=== PATIENT | female | born 1940 | race Caucasian/White ===

== ENCOUNTER → 2019-03-11 | Outpatient (CLI) | payer OTHER ==
[~2019-03-11] MED LIST: ALBIPROI; ALBU90OI; ASPI325 PO; ETHNOR1/5; FLUSAL115 IH; FOLI1; HYDACE5 PO; LEVFLO500 PO; LEVO750 PO; LEVSOD50; LORPSEER24; LOVA20 PO; METTREX2.5; PRED10 PO; PRED5 PO; SUDOGEST; ZAFI20
[2019-03-11 16:16] LABS: BASOPHILS ABSOLUTE AUTO 0.12 K/mm3 (0.00-0.23); BASOPHILS PERCENT AUTO 2 % (0-2); EOSINOPHILS ABSOLUTE AUTO 0.51 K/mm3 (0.00-0.68); EOSINOPHILS PERCENT AUTO 7 % (0-6); Hematocrit 39.5 % (33.0-51.0); Hemoglobin 12.7 g/dL (11.5-16.0); IMMATURE GRAN ABSOLUTE AUTO 0.01 K/mm3 (0.00-0.10); IMMATURE GRAN PERCENT AUTO 0 % (0-1); LYMPHOCYTES ABSOLUTE AUTO 2.54 K/mm3 (0.84-5.20); LYMPHOCYTES PERCENT AUTO 37 % (21-46); MONOCYTES ABSOLUTE AUTO 0.64 K/mm3 (0.16-1.47); MONOCYTES PERCENT AUTO 9 % (4-13); Mean Corpuscular HGB 28.2 pg (26.0-34.0); Mean Corpuscular HGB Conc 32.2 g/dL (31.5-36.5); Mean Corpuscular Volume 88 fL (80-100); Mean Platelet Volume 9.4 fL (9.1-12.4); NEUTROPHILS ABSOLUTE AUTO 3.06 K/mm3 (1.96-9.15); NEUTROPHILS PERCENT AUTO 45 % (41-73); Platelet Count 353 K/mm3 (150-400); RDW Coefficient Variation 13.9 % (11.7-14.2); RDW Standard Deviation 44.5 fL (35.1-46.3); Red Blood Cell Count 4.51 M/mm3 (3.80-5.20); White Blood Cell Count 6.88 K/mm3 (4.00-11.30)
[2019-03-11 16:35] LABS: Alanine Aminotransfer (ALT/SGP 19 U/L (12-78); Albumin, Blood 3.6 g/dL (3.4-5.0); Albumin/Globulin Ratio 1.1 (0.8-1.8); Alk Phos 87 U/L (40-126); Anion Gap 13 mmol/L (6-16); Aspartate Aminotrans (AST/SGOT 15 U/L (12-37); Bilirubin, Total 0.3 mg/dL (0.1-1.0); Blood Urea Nitrogen 14 mg/dL (8-24); Bun/Creatinine Ratio 18.4 (12.0-20.0); CO2, Blood 24 mmol/L (21-32); Calcium, Blood 8.9 mg/dL (8.5-10.1); Chloride, Blood 102 mmol/L (98-108); Creatinine, Blood 0.76 mg/dL (0.40-1.00); Globulin, Blood 3.2 g/dL (2.2-4.0); Glomerular Filtration Rate >60 (60-); Glucose, Blood 92 mg/dL (70-99); Potassium, Blood 4.3 mmol/L (3.5-5.5); Sodium, Blood 139 mmol/L (136-145); Thyroid Stimulating Hormone 0.054 uIU/mL (0.360-4.800); Total Protein, Blood 6.8 g/dL (6.4-8.2)
== END | disposition home or self-care (01) ==
LOC: LAB SHORT 16:11 → LAB EV 16:11
PROVIDERS: Physician Assistant
DX: E55.9 Vitamin D deficiency, unspecified (principal); R10.9 Unspecified abdominal pain; R53.83 Other fatigue
CPT/HCPCS: 80053; 82306; 84443; 85025

== ENCOUNTER → 2019-08-31 | Outpatient (CLI) | payer OTHER | END | disposition home or self-care (01) | LOC: LAB EV 13:50 → LAB SHORT 13:50 | DX: R05 Cough (principal); Z20.828 Contact with and (suspected) exposure to other viral communicable diseases | CPT/HCPCS: U0003 ==

== ENCOUNTER → 2019-11-02 | Outpatient (CLI) | payer OTHER ==
[2019-11-02 13:17] LABS: BASOPHILS ABSOLUTE AUTO 0.09 K/mm3 (0.00-0.23); BASOPHILS PERCENT AUTO 1 % (0-2); EOSINOPHILS ABSOLUTE AUTO 0.36 K/mm3 (0.00-0.68); EOSINOPHILS PERCENT AUTO 4 % (0-6); Hematocrit 38.1 % (33.0-51.0); Hemoglobin 11.7 g/dL (11.5-16.0); IMMATURE GRAN ABSOLUTE AUTO 0.04 K/mm3 (0.00-0.10); IMMATURE GRAN PERCENT AUTO 1 % (0-1); LYMPHOCYTES ABSOLUTE AUTO 2.08 K/mm3 (0.84-5.20); LYMPHOCYTES PERCENT AUTO 25 % (21-46); MONOCYTES ABSOLUTE AUTO 0.57 K/mm3 (0.16-1.47); MONOCYTES PERCENT AUTO 7 % (4-13); Mean Corpuscular HGB 25.4 pg (26.0-34.0); Mean Corpuscular HGB Conc 30.7 g/dL (31.5-36.5); Mean Corpuscular Volume 83 fL (80-100); Mean Platelet Volume 9.5 fL (9.1-12.4); NEUTROPHILS ABSOLUTE AUTO 5.11 K/mm3 (1.96-9.15); NEUTROPHILS PERCENT AUTO 62 % (41-73); Platelet Count 434 K/mm3 (150-400); RDW Coefficient Variation 18.4 % (11.7-14.2); White Blood Cell Count 8.25 K/mm3 (4.00-11.30)
== END | disposition home or self-care (01) ==
LOC: LAB SHORT 13:12 → LAB EV 13:12
PROVIDERS: Family Medicine
DX: R53.83 Other fatigue (principal)
CPT/HCPCS: 84443; 85025

== ENCOUNTER 2021-01-09 19:21 | Inpatient (IN) | payer MEDICARE ==
[~2021-01-09] VITALS: Ht 154.9 cm; Wt 67.1 kg
[2021-01-09 20:19] LABS: BASOPHILS ABSOLUTE AUTO 0.09 K/mm3 (0.00-0.23); BASOPHILS PERCENT AUTO 1 % (0-2); EOSINOPHILS ABSOLUTE AUTO 0.03 K/mm3 (0.00-0.68); EOSINOPHILS PERCENT AUTO 0 % (0-6); Hematocrit 35.4 % (33.0-51.0); Hemoglobin 10.8 g/dL (11.5-16.0); IMMATURE GRAN ABSOLUTE AUTO 0.06 K/mm3 (0.00-0.10); IMMATURE GRAN PERCENT AUTO 0 % (0-1); LYMPHOCYTES ABSOLUTE AUTO 1.95 K/mm3 (0.84-5.20); LYMPHOCYTES PERCENT AUTO 12 % (21-46); MONOCYTES ABSOLUTE AUTO 1.39 K/mm3 (0.16-1.47); MONOCYTES PERCENT AUTO 9 % (4-13); Mean Corpuscular HGB 23.2 pg (26.0-34.0); Mean Corpuscular HGB Conc 30.5 g/dL (31.5-36.5); Mean Corpuscular Volume 76 fL (80-100); Mean Platelet Volume 10.3 fL (9.1-12.4); NEUTROPHILS PERCENT AUTO 79 % (41-73); Platelet Count 414 K/mm3 (150-400); RDW Coefficient Variation 18.7 % (11.7-14.2); RDW Standard Deviation 51.1 fL (35.1-46.3); Red Blood Cell Count 4.66 M/mm3 (3.80-5.20); White Blood Cell Count 16.42 K/mm3 (4.00-11.30)
[2021-01-09 20:41] LABS: Alanine Aminotransfer (ALT/SGP 32 U/L (12-78); Albumin, Blood 2.6 g/dL (3.4-5.0); Albumin/Globulin Ratio 0.6 (0.8-1.8); Alk Phos 176 U/L (50-136); Anion Gap 9 mmol/L (6-16); Aspartate Aminotrans (AST/SGOT 18 U/L (12-37); Bilirubin, Total 1.1 mg/dL (0.1-1.0); Blood Urea Nitrogen 13 mg/dL (8-24); Bun/Creatinine Ratio 17.1 (12.0-20.0); CO2, Blood 23 mmol/L (21-32); Calcium, Blood 8.5 mg/dL (8.5-10.1); Chloride, Blood 101 mmol/L (98-108); Creatinine, Blood 0.76 mg/dL (0.40-1.00); Globulin, Blood 4.7 g/dL (2.2-4.0); Glomerular Filtration Rate >60 (60-); Glucose, Blood 100 mg/dL (70-99); Potassium, Blood 3.7 mmol/L (3.5-5.5); Sodium, Blood 133 mmol/L (136-145); Total Protein, Blood 7.3 g/dL (6.4-8.2); Troponin I <0.015 ng/mL (0.000-0.040)
[2021-01-09 20:49] LABS: SARS-Cov-2 (COVID-19) PCR, MMC NEGATIVE (NEGATIVE)
[2021-01-09] MEDS ORDERED: IPRAT-ALBUT 0.5-3 ML INH (21:18)
[2021-01-09] MEDS ORDERED: MONT10T PO (21:18)
[2021-01-09] MEDS ORDERED: TIOT18 INH (21:19)
[2021-01-09] MEDS ORDERED: METOPROLOL TART25 MG PO (21:19)
[2021-01-09] MEDS ORDERED: METFORMIN HCL500 M2 PO (21:19)
[2021-01-09] MEDS ORDERED: PANTOPRAZOLE SO40 M2 PO (21:19)
[2021-01-09] MEDS ORDERED: EUTHYROX88 MC1 PO (21:20)
[2021-01-09] MEDS ORDERED: ALEN10 PO (21:20)
[2021-01-09 22:08] LABS: Influenza A, PCR NEGATIVE (NEGATIVE); Influenza B, PCR NEGATIVE (NEGATIVE); Resp Syncytial Virus, PCR NEGATIVE (NEGATIVE)
[2021-01-10 00:02] LABS: Source, Urine Clean Catch
[2021-01-10 00:08] LABS: Bilirubin, Urine Neg (Neg); Blood, Urine 2+ (Neg); Glucose Qualitative, Urine Neg (Neg); Ketones, Urine 4+ (Neg); Leukocyte Esterase, Urine 3+ (Neg); Nitrite, Urine Neg (Neg); Protein, Urine 2+ (Neg); Specific Gravity, Urine 1.015 (1.003-1.022); Urobilinogen, Urine 2+ (Normal)
[2021-01-10 00:14] LABS: Appearance, Urine Clear (Clear); Bacteria Few /hpf; Color, Urine Yellow (P-Yellow); Red Blood Cells, Urine 0-2 /hpf (0-2); Squamous Epithelial Cells Few /hpf (Few)
[2021-01-10 07:02] LABS: BASOPHILS ABSOLUTE AUTO 0.05 K/mm3 (0.00-0.23); BASOPHILS PERCENT AUTO 0 % (0-2); EOSINOPHILS ABSOLUTE AUTO 0.06 K/mm3 (0.00-0.68); EOSINOPHILS PERCENT AUTO 0 % (0-6); Hematocrit 27.6 % (33.0-51.0); Hemoglobin 8.4 g/dL (11.5-16.0); IMMATURE GRAN ABSOLUTE AUTO 0.06 K/mm3 (0.00-0.10); IMMATURE GRAN PERCENT AUTO 0 % (0-1); LYMPHOCYTES ABSOLUTE AUTO 1.52 K/mm3 (0.84-5.20); LYMPHOCYTES PERCENT AUTO 11 % (21-46); MONOCYTES ABSOLUTE AUTO 1.57 K/mm3 (0.16-1.47); MONOCYTES PERCENT AUTO 12 % (4-13); Mean Corpuscular HGB 23.3 pg (26.0-34.0); Mean Corpuscular HGB Conc 30.4 g/dL (31.5-36.5); Mean Corpuscular Volume 77 fL (80-100); Mean Platelet Volume 10.5 fL (9.1-12.4); NEUTROPHILS ABSOLUTE AUTO 10.44 K/mm3 (1.96-9.15); NEUTROPHILS PERCENT AUTO 76 % (41-73); Platelet Count 323 K/mm3 (150-400); RDW Coefficient Variation 18.5 % (11.7-14.2); RDW Standard Deviation 51.3 fL (35.1-46.3)
[2021-01-10 07:13] LABS: Alanine Aminotransfer (ALT/SGP 28 U/L (12-78); Albumin, Blood 1.8 g/dL (3.4-5.0); Albumin/Globulin Ratio 0.5 (0.8-1.8); Alk Phos 136 U/L (50-136); Anion Gap 8 mmol/L (6-16); Aspartate Aminotrans (AST/SGOT 21 U/L (12-37); Bilirubin, Total 0.6 mg/dL (0.1-1.0); Blood Urea Nitrogen 12 mg/dL (8-24); Bun/Creatinine Ratio 18.6 (12.0-20.0); CO2, Blood 21 mmol/L (21-32); Calcium, Blood 7.1 mg/dL (8.5-10.1); Chloride, Blood 109 mmol/L (98-108); Creatinine, Blood 0.65 mg/dL (0.40-1.00); Globulin, Blood 3.7 g/dL (2.2-4.0); Glomerular Filtration Rate >60 (60-); Glucose, Blood 138 mg/dL (70-99); Potassium, Blood 3.1 mmol/L (3.5-5.5); Sodium, Blood 138 mmol/L (136-145); Total Protein, Blood 5.5 g/dL (6.4-8.2)
--- NOTE | 2021-01-10 08:00 | NUR ---
PT ARRIVED FROM ER. PT ALERT AND ORIENTED, ABLE TO STAND AND TRANSFER TO ICU BED WITHOUT ASSISTANCE. PT ON 2L 02 VIA NASAL CANNULA, 02 SATS >90%. PT HAS IV ACCESS IN R/FOREARM AND L/AC. LEVOPHED STARTED AT 2 MCG/MIN FOR SYSTOLIC BP BELOW 90. NO OTHER ACUTE NEEDS NOTED, WILL CONTINUE TO MONITOR.
--- NOTE | 2021-01-10 18:25 | NUR ---
Shift summary. Pt continues in bed, on 2L/min 02 via NC. Pt is alert and oriented, able to get up to bedside commode and chair. Pt has powerglide in DARWIN, put in this shift. IV access in L/AC. IV pump settings: Levophed 2 mcg/min, Potassium chloride 75 ml/hr. Pt blood pressure labile during shift, Levophed titrated off and on several times over the course of the shift. See shift assessment for further details, will continue to monitor and report off to nightshift RN.
--- NOTE | 2021-01-10 19:00 | NUR ---
ASSUME CARE: PT A&O X4, SITTING AT SIDE OF THE BED WATCHING TV. SHE DENIES PAIN AND IS AFEBRILE. LEVO INFUSING AT 2MCG/MIN AND NS + KCL AT 75ML/HR. ON 2L NC SHE IS SATING >95%. HR IN 90'S AND BP IS 110/70. SHE IS REQUESTING TO EAT HER DINNER BUT HAS NO OTHER CONCERNS OR COMPLAINTS AT THIS TIME. SEE SHIFT ASSESSMENT FOR DETAILS.
[2021-01-11 03:36] LABS: BASOPHILS ABSOLUTE AUTO 0.01 K/mm3 (0.00-0.23); BASOPHILS PERCENT AUTO 0 % (0-2); EOSINOPHILS PERCENT AUTO 0 % (0-6); Hematocrit 29.1 % (33.0-51.0); Mean Corpuscular HGB 23.1 pg (26.0-34.0); Mean Corpuscular HGB Conc 30.9 g/dL (31.5-36.5); Mean Corpuscular Volume 75 fL (80-100); Mean Platelet Volume 10.2 fL (9.1-12.4); Platelet Count 385 K/mm3 (150-400); RDW Coefficient Variation 18.9 % (11.7-14.2); RDW Standard Deviation 50.7 fL (35.1-46.3)
[2021-01-11 03:37] LABS: IMMATURE GRAN ABSOLUTE AUTO 0.11 K/mm3 (0.00-0.10); IMMATURE GRAN PERCENT AUTO 1 % (0-1); LYMPHOCYTES ABSOLUTE AUTO 0.95 K/mm3 (0.84-5.20); LYMPHOCYTES PERCENT AUTO 10 % (21-46); MONOCYTES ABSOLUTE AUTO 0.15 K/mm3 (0.16-1.47); MONOCYTES PERCENT AUTO 2 % (4-13); NEUTROPHILS ABSOLUTE AUTO 8.48 K/mm3 (1.96-9.15); NEUTROPHILS PERCENT AUTO 88 % (41-73)
[2021-01-11 03:56] LABS: Anion Gap 6 mmol/L (6-16); Blood Urea Nitrogen 7 mg/dL (8-24); Bun/Creatinine Ratio 11.7 (12.0-20.0); CO2, Blood 24 mmol/L (21-32); Chloride, Blood 108 mmol/L (98-108); Glomerular Filtration Rate >60 (60-); Glucose, Blood 227 mg/dL (70-99); Phosphorus, Blood 1.1 mg/dL (2.5-4.9); Potassium, Blood 3.9 mmol/L (3.5-5.5); Sodium, Blood 138 mmol/L (136-145)
--- NOTE | 2021-01-11 06:09 | NUR ---
SHIFT SUMMARY: PT LYING IN BED W/ EYES CLOSED ON 2L NC CURRENTLY SATING 97%. SHE IS EASILY AROUSABLE AND A&0 x4. HR IS 78 AND BP IS 116/69. LEVO HAS BEEN ON STAND BY SINCE AROUND 0400 AND NS + KCL IS STILL INFUSING AT 75ML/HR. PT IS ABLE TO STAND UP TO USE THE BEDSIDE COMMODE AND HER URINE IS MORE LIGHT YELLOW AND CLEAR THIS MORNING. SHE HAS REMAINED AFEBRILE AND DENIES PAIN. WILL REPORT TO ONCOMING RN WHEN AVAILABLE.
--- NOTE | 2021-01-11 08:05 | NUR ---
Assumed care. Report received from nightshift RN. Pt resting in bed, on 2L 02 via NC. Powerglide in place, IV pump settings: KCl running at 75 ml/hr. Levophed on SB. Pt alert and oriented, able to communicate needs and get up to bedside commode. No acute needs at this time, will continue to monitor.
--- NOTE | 2021-01-11 16:10 | NUR ---
Patient transferred. Pt moved to PCU room 10. Report given to Atif BRUNO. No acute needs noted at time of transfer.
--- NOTE | 2021-01-11 17:49 | NUR ---
SHIFT SUMMARY PT A/O X4 AND COOPERATIVE OF CARE. PT ARRIVED TO UNIT VIA WHEELCHAIR AND ON 1.5L NC AT 1642 OCCOMPANIED BY RN. NO REPORTS OF CHEST PAIN/PRESSURE SINCE ARRIVAL TO UNIT. NO REPORTS OF SOB SINCE ARRIVAL TO UNIT, AUDIBLE WHEEZES HEARD, PT RECIEVES BREATHING TREATMENTS.
--- NOTE | 2021-01-11 21:31 | NUR ---
ASSUMED CARE OF PATIENT AT APPROXIMATELY 1905 FROM REJI Wong RN. PATIENT ALERT AND ORIENTED X4; SBA OUT OF BED; REPORTS TURNS SELF. PATIENT REPORTS FRUSTRATION WITH BREATHING TREATMENT FREQUENCY DURING BEDSIDE REPORT. PATIENT DENIES PAIN, NUMBNESS, TINGLING, DIZZINESS AND NAUSEA. NSR ON TELE; OXYGEN SATURATION ABOVE 90% ON 1 LPM VIA NC. PG S/L. BP SOFT BUT PATIENT REPORTS CHORNIC LOW BP.
[2021-01-12 04:29] LABS: BASOPHILS ABSOLUTE AUTO 0.01 K/mm3 (0.00-0.23); BASOPHILS PERCENT AUTO 0 % (0-2); EOSINOPHILS PERCENT AUTO 0 % (0-6); Hematocrit 29.2 % (33.0-51.0); Hemoglobin 8.9 g/dL (11.5-16.0); Mean Corpuscular HGB 22.9 pg (26.0-34.0); Mean Corpuscular HGB Conc 30.5 g/dL (31.5-36.5); Mean Corpuscular Volume 75 fL (80-100); Mean Platelet Volume 10.6 fL (9.1-12.4); NRBC ABSOLUTE 0.03 K/mm3 (0.00-0.02); NRBC Auto 0.3 /100 WBC (0.0-0.2); Platelet Count 464 K/mm3 (150-400); RDW Coefficient Variation 18.9 % (11.7-14.2); RDW Standard Deviation 51.8 fL (35.1-46.3); Red Blood Cell Count 3.88 M/mm3 (3.80-5.20); White Blood Cell Count 11.11 K/mm3 (4.00-11.30)
[2021-01-12 04:45] LABS: Albumin, Blood 2.1 g/dL (3.4-5.0); Anion Gap 8 mmol/L (6-16); Blood Urea Nitrogen 11 mg/dL (8-24); Bun/Creatinine Ratio 17.4 (12.0-20.0); CO2, Blood 23 mmol/L (21-32); Calcium, Blood 8.6 mg/dL (8.5-10.1); Chloride, Blood 110 mmol/L (98-108); Creatinine, Blood 0.63 mg/dL (0.40-1.00); Glomerular Filtration Rate >60 (60-); Glucose, Blood 189 mg/dL (70-99); Phosphorus, Blood 2.3 mg/dL (2.5-4.9); Potassium, Blood 3.8 mmol/L (3.5-5.5); Sodium, Blood 141 mmol/L (136-145)
[2021-01-12 04:51] LABS: IMMATURE GRAN ABSOLUTE AUTO 0.24 K/mm3 (0.00-0.10); IMMATURE GRAN PERCENT AUTO 2 % (0-1); LYMPHOCYTES ABSOLUTE AUTO 1.75 K/mm3 (0.84-5.20); LYMPHOCYTES PERCENT AUTO 16 % (21-46); MONOCYTES ABSOLUTE AUTO 0.34 K/mm3 (0.16-1.47); MONOCYTES PERCENT AUTO 3 % (4-13); NEUTROPHILS ABSOLUTE AUTO 8.77 K/mm3 (1.96-9.15); NEUTROPHILS PERCENT AUTO 79 % (41-73)
[2021-01-12 06:00] LABS: BAND PERCENT MAN 1 % (0-8); BASOPHILS PERCENT MAN 0 % (0-2); EOSINOPHILS PERCENT MAN 0 % (0-6); LYMPHOCYTES ABSOLUTE MAN 1.66 K/mm3 (0.84-5.20); LYMPHOCYTES PERCENT MAN 15 % (21-46); METAMYELOCYTE ABSOLUTE MAN 0.11 K/mm3 (0.00-0.00); METAMYELOCYTE PERCENT MAN 1 % (0-0); MONOCYTES ABSOLUTE MAN 0.33 K/mm3 (0.16-1.47); MONOCYTES PERCENT MAN 3 % (4-13); NEUTROPHILS ABSOLUTE MAN 8.88 K/mm3 (1.96-9.15); PLASMA CELL ABSOLUTE MAN 0.11 K/mm3 (0.00-0.00); PLASMA CELLS PERCENT MAN 1 % (0-0); SEG NEUTROPHILS PERCENT MAN 79 % (41-73); TOTAL CELLS COUNTED 100
--- NOTE | 2021-01-12 06:45 | NUR ---
PATIENT SLEPT ABOUT NINE HOURS LAST NIGHT. NO ACUTE CHANGES.
--- NOTE | 2021-01-12 10:41 | NUR ---
ALERT AND ORIENTED X4. PERRLA. DENIES NUMBNESS/TINGLING. ABLE TO MOVE ALL EXTREMITIES, OVERALL WEAK. UP TO BATHROOM WITH 1 PERSON ASSIST. ON 1-2L O2 WHEN UP MOVING AROUND. LUNGS SOUNDING DIM WITH EXPIRATORY WHEEZE. BREATHING TREATMENTS PRN. TELE SHOWING SINUS THIS AM WITH HR 80-90'S. TELE DISCONTINUED. DENIES CHEST PAIN/PRESSURE. VITAL SIGNS STABLE. BP ON SOFTER SIDE. METOPROLOL HELD THIS AM DUE TO PARAMETERS/SOFT BP. UP TO BATHROOM WITH 1 PERSON ASSIST. DENIES ABDOMINAL PAIN/NAUSEA. COMPLAINS OF NECK PAIN. RELEIVED WITH REPOSITIONING. DR. PARADA IN THIS AM TO DISCUSS PATIENT STATUS. CODE STATUS REVIEWED AND PATIENT STATED DNI. SHE WOULD LIKE EVERYTHING BUT INTUBATION. SKIN OVERALL FRAGILE. SCATTERED BRUISING AND SCABS. MEDICAL STATUS AT THIS TIME. WILL CONTINUE TO MONITOR. CALL LIGHT IN REACH.
--- NOTE | 2021-01-12 11:10 | NUR ---
TRANSFER TO MEDICAL: REPORTED OFF TO MEDICAL FLOOR RN. PATIENT WILL BE LEAVING UNIT VIA WHEELCHAIR WITH ALL PERSONAL BELONGINGS. NO ACUTE CHANGES. SLEEPING ON AND OFF THIS AM.
--- NOTE | 2021-01-12 16:36 | NUR ---
SHIFT SUMMARY PATIENT IS ALERT AND ORIENTED, PLEASANT AND COOPERATIVE WITH CARE. PATIENT HAS SOME EXPIRATORY WHEEZING. PATIENT HAS HAD 2 BREATHING TREATMENTS THIS SHIFT. PATIENT DENIES ANY DISTRESS. PATIENT USES 2 LPM OF 02 VIA NASAL CANNULA WHILE WALKING. RA AT REST. PATIENT WILL GET ANTIBIOTIC THERAPY THIS EVENING. PATIENT'S SPOUSE IS AT BEDISIDE. CALL LIGHT WITHIN REACH. VITAL SIGNS STABLE. NO ACUTE CHANGES THIS SHIFT. THIS NURSE WILL CONTINUE TO CARE FOR THE PATIENT UNTIL SHIFT REPORT IS MADE TO ONCOMING NURSE.
[2021-01-12] MEDS ORDERED: NYSTATIN15 GM TOP (22:55)
--- NOTE | 2021-01-13 04:26 | NUR ---
SHIFT SUMMARY PT ALERT AND ORIENTED. STILL HAS EXPIRATORY WHEEZING. CALL RESPIRATORY THERAPIST FOR SHORTNESS OF BREATH. PT STILL COMPLAINING ABOUT PILLOWS . IV ABT GIVEN. NO S/S OF ADVERSE REACTION. KEEP MONITORING.
[2021-01-13 05:35] LABS: Hematocrit 27.4 % (33.0-51.0); Hemoglobin 8.6 g/dL (11.5-16.0); Mean Corpuscular HGB 23.4 pg (26.0-34.0); Mean Corpuscular HGB Conc 31.4 g/dL (31.5-36.5); Mean Corpuscular Volume 75 fL (80-100); Mean Platelet Volume 10.1 fL (9.1-12.4); NRBC ABSOLUTE 0.03 K/mm3 (0.00-0.02); NRBC Auto 0.2 /100 WBC (0.0-0.2); Platelet Count 489 K/mm3 (150-400); RDW Standard Deviation 51.6 fL (35.1-46.3); Red Blood Cell Count 3.68 M/mm3 (3.80-5.20); White Blood Cell Count 12.25 K/mm3 (4.00-11.30)
[2021-01-13 05:58] LABS: Albumin, Blood 2.1 g/dL (3.4-5.0); Anion Gap 8 mmol/L (6-16); Blood Urea Nitrogen 14 mg/dL (8-24); Bun/Creatinine Ratio 23.3 (12.0-20.0); CO2, Blood 23 mmol/L (21-32); Calcium, Blood 8.3 mg/dL (8.5-10.1); Chloride, Blood 110 mmol/L (98-108); Glomerular Filtration Rate >60 (60-); Glucose, Blood 152 mg/dL (70-99); Phosphorus, Blood 2.8 mg/dL (2.5-4.9); Potassium, Blood 3.9 mmol/L (3.5-5.5); Sodium, Blood 141 mmol/L (136-145)
[2021-01-13 06:20] LABS: BAND PERCENT MAN 4 % (0-8); BASOPHILS PERCENT MAN 0 % (0-2); EOSINOPHILS PERCENT MAN 0 % (0-6); LYMPHOCYTES ABSOLUTE MAN 1.47 K/mm3 (0.84-5.20); LYMPHOCYTES PERCENT MAN 12 % (21-46); MONOCYTES ABSOLUTE MAN 0.73 K/mm3 (0.16-1.47); MONOCYTES PERCENT MAN 6 % (4-13); MYELOCYTE ABSOLUTE MAN 0.12 K/mm3 (0.00-0.00); MYELOCYTE PERCENT MAN 1 % (0-0); NEUTROPHILS ABSOLUTE MAN 9.92 K/mm3 (1.96-9.15); SEG NEUTROPHILS PERCENT MAN 77 % (41-73); TOTAL CELLS COUNTED 100
[2021-01-13 11:43] LABS: Percent Saturation 6.8 % (15.0-50.0)
--- NOTE | 2021-01-13 14:59 | NUR ---
SHIFT SUMMARY PT AWAKE, RESTING QUIETLY WATCHING TV AT START OF SHIFT. PT UP INDEPENDENTLY TO BTHRM TO VOID. DR HASTINGS IN TO SEE PT THIS AM. MEDS ADJUSTED FOR PROBABLE D/C TO HOME TOMORROW. HX OF CHRONIC ANEMIA; STOOL GUIAC ORDERED. HAT PLACED IN TOILET AND PT INFORMED, BUT REPORTED THAT SHE DIDN'T NEED TO HAVE BM. LUNGS T/O WITH ONLY FINE CRACKLES SCATTERED IN BASES. PT LATER C/O TREJO; MEDICATED WITH TYLENOL PER EMAR. DENIED FURTHER NEEDS TO PRESENT. CALL LT IN REACH.
--- NOTE | 2021-01-13 16:47 | NUR ---
Initial Assessment with [facility] [employer] 1. Who did you speak with? Spoke with patient 2. What is the patient's prior level of functions? Independent 3. What is the patient's current living situation? Patient lives with her . Patient has a safe and stable home with running water, heat electricity, and sewage. No barriers at this time. 4. Is the patient and/or family able to provide transportation to and from doctor's appointments and pear picker prescriptions? Yes 5. Does patient still drive? Yes 6. POA/PCP/NOK: PCP-pt requests new PCP 7. Discharge goals: -Patient is returning to her residence -DME: no -Medication Management Self-management -Preferred Pharmacy: [facility] -Housekeeping need: No -Able to cook for self: yes 8. List barriers to discharge -SNF Placement: No -Memory Care: No -Transportation needs: No -Financial concerns: No -Drug/Alcohol treatment: No -Home Health: No -Hospice: No 9. Discharge Plan: Return to her residence 10. PCP Follow up appointment: Will be scheduled within seven calendar days of discharge.
--- NOTE | 2021-01-14 03:53 | NUR ---
SHIFT SUMMARY ADMITTED FOR PNEUMONIA/SEPSIS. DNI CODE (CPR/SHOCKS ARE OK). PLAN IS FOR DC HOME TODAY. POWERGLIDE IS IN PLACE - DARWIN. REGULAR DIET. ACHS CHEMSTICKS, LOW SS. SHE IS A&O X4, INDEPENDENT IN ROOM. ANTIB RX ARE PO. SHE IS ON RA @ HOME, HERE SHE HAS BEEN ON 2 LPM.
[2021-01-14 05:05] LABS: BASOPHILS ABSOLUTE AUTO 0.05 K/mm3 (0.00-0.23); BASOPHILS PERCENT AUTO 0 % (0-2); EOSINOPHILS ABSOLUTE AUTO 0.01 K/mm3 (0.00-0.68); EOSINOPHILS PERCENT AUTO 0 % (0-6); Hematocrit 29.1 % (33.0-51.0); Hemoglobin 9.2 g/dL (11.5-16.0); IMMATURE GRAN ABSOLUTE AUTO 0.56 K/mm3 (0.00-0.10); IMMATURE GRAN PERCENT AUTO 4 % (0-1); LYMPHOCYTES ABSOLUTE AUTO 4.33 K/mm3 (0.84-5.20); LYMPHOCYTES PERCENT AUTO 34 % (21-46); MONOCYTES ABSOLUTE AUTO 1.43 K/mm3 (0.16-1.47); MONOCYTES PERCENT AUTO 11 % (4-13); Mean Corpuscular HGB 23.2 pg (26.0-34.0); Mean Corpuscular HGB Conc 31.6 g/dL (31.5-36.5); Mean Corpuscular Volume 73 fL (80-100); NEUTROPHILS ABSOLUTE AUTO 6.47 K/mm3 (1.96-9.15); NEUTROPHILS PERCENT AUTO 50 % (41-73); NRBC ABSOLUTE 0.11 K/mm3 (0.00-0.02); NRBC Auto 0.9 /100 WBC (0.0-0.2); Platelet Count 540 K/mm3 (150-400); RDW Standard Deviation 49.2 fL (35.1-46.3); Red Blood Cell Count 3.97 M/mm3 (3.80-5.20); White Blood Cell Count 12.85 K/mm3 (4.00-11.30)
[2021-01-14 06:05] LABS: Albumin, Blood 2.3 g/dL (3.4-5.0); Anion Gap 9 mmol/L (6-16); Blood Urea Nitrogen 16 mg/dL (8-24); Bun/Creatinine Ratio 22.1 (12.0-20.0); CO2, Blood 29 mmol/L (21-32); Calcium, Blood 8.7 mg/dL (8.5-10.1); Chloride, Blood 104 mmol/L (98-108); Creatinine, Blood 0.73 mg/dL (0.40-1.00); Glomerular Filtration Rate >60 (60-); Glucose, Blood 94 mg/dL (70-99); Phosphorus, Blood 3.3 mg/dL (2.5-4.9); Potassium, Blood 3.6 mmol/L (3.5-5.5); Sodium, Blood 142 mmol/L (136-145)
--- NOTE | 2021-01-14 14:51 | NUR ---
SHIFT SUMMARY PT RESTING QUIETLY AT START OF SHIFT. WAKES EASILY FOR CARE, BUT IRRITABLE. PT HAS BEEN INDEPENDENT TO BTHRM AND AROUND RM. REPORTS THAT SHE DOESN'T FEEL WELL TODAY YESTERDAY. LUNGS T/O WITH INSP/EXP WHEEZES TODAY. PT C/O NECK PAIN, BUT DECLINES PAIN MEDICATION. DR HASTINGS IN TO SEE PT. HOME O2 EVAL DONE FOR POSSIBLE D/C. PT DID WELL AMBULATING IN HALLS, BUT JUST DIDN'T FEEL WELL ENOUGH TO GO HOME. PT TO STAY ANOTHER DAY AND XRAYS ORDERED OF PT'S NECK. STOOL, SPUTUM AND URINE CX'S ALSO ORDERED. URINE OBTAINED AND SENT. PT CONTINUES TO REPORT NO BM FOR SEVERAL DAYS, BUT REFUSING MOST BOWEL CARE. PT DID AGREE TO PRUNE JUICE. PT/OT ALSO ATTEMPTED TO WORK WITH PT TODAY. PT ONLY ALLOWING VERY LIMITED PARTICIPATION. VERY IRRITABLE WITH SOME STAFF. RESTING QUIETLY AGAIN AT THIS TIME. DENIES FURTHER NEEDS. CALL LT IN REACH.
--- NOTE | 2021-01-15 03:54 | NUR ---
SHIFT SUMMARY ADMITTED FOR SEVERE SEPSIS/PNEUMONIA. DNI CODE (CPR/SHOCKS OK). PLAN IS FOR DC HOME. POWERGLIDE IN DARWIN. REGULAR DIET. RA. INDEPENDENT - BRP. A&O X4. ACHS CHEMSTICKS, LOW SS. NO NEW CONCERNS THIS SHIFT
[2021-01-15 05:32] LABS: BASOPHILS ABSOLUTE AUTO 0.02 K/mm3 (0.00-0.23); BASOPHILS PERCENT AUTO 0 % (0-2); EOSINOPHILS ABSOLUTE AUTO 0.02 K/mm3 (0.00-0.68); EOSINOPHILS PERCENT AUTO 0 % (0-6); Hematocrit 29.5 % (33.0-51.0); Hemoglobin 9.1 g/dL (11.5-16.0); IMMATURE GRAN ABSOLUTE AUTO 0.47 K/mm3 (0.00-0.10); IMMATURE GRAN PERCENT AUTO 4 % (0-1); LYMPHOCYTES ABSOLUTE AUTO 4.09 K/mm3 (0.84-5.20); LYMPHOCYTES PERCENT AUTO 34 % (21-46); MONOCYTES ABSOLUTE AUTO 1.13 K/mm3 (0.16-1.47); MONOCYTES PERCENT AUTO 9 % (4-13); Mean Corpuscular HGB 22.8 pg (26.0-34.0); Mean Corpuscular HGB Conc 30.8 g/dL (31.5-36.5); Mean Corpuscular Volume 74 fL (80-100); Mean Platelet Volume 9.9 fL (9.1-12.4); NEUTROPHILS ABSOLUTE AUTO 6.49 K/mm3 (1.96-9.15); NEUTROPHILS PERCENT AUTO 53 % (41-73); NRBC ABSOLUTE 0.12 K/mm3 (0.00-0.02); Platelet Count 538 K/mm3 (150-400); RDW Coefficient Variation 18.9 % (11.7-14.2); RDW Standard Deviation 49.7 fL (35.1-46.3); Red Blood Cell Count 3.99 M/mm3 (3.80-5.20); White Blood Cell Count 12.22 K/mm3 (4.00-11.30)
[2021-01-15 06:12] LABS: Anion Gap 9 mmol/L (6-16); Blood Urea Nitrogen 17 mg/dL (8-24); Bun/Creatinine Ratio 24.7 (12.0-20.0); CO2, Blood 29 mmol/L (21-32); Calcium, Blood 8.1 mg/dL (8.5-10.1); Chloride, Blood 103 mmol/L (98-108); Creatinine, Blood 0.69 mg/dL (0.40-1.00); Glomerular Filtration Rate >60 (60-); Glucose, Blood 107 mg/dL (70-99); Potassium, Blood 3.6 mmol/L (3.5-5.5); Sodium, Blood 141 mmol/L (136-145)
[2021-01-15 10:39] LABS: Stool Occult Blood Guaiac 1 Neg (Neg)
[2021-01-15] MEDS ORDERED: ATOR40TA PO (12:25)
[2021-01-15] MEDS ORDERED: Prednisone10 MG PO (12:30)
[2021-01-15] MEDS ORDERED: BREO ELLIPTA 21 EAC1 INH (12:31)
--- NOTE | 2021-01-15 19:19 | NUR ---
DISCHARGE SUMMARY: PATIENT DENIED SHORTNESS OF BREATH THROUGHOUT THE SHIFT. PATIENT REQUESTED A BREATHING TREATMENT ONE TIME, BUT REPORTED THAT HER BREATHING FEELS THAT IT IS AT BASELINE. PATIENT CONTINUES TO HAVE SOME NECK PAIN THAT SHE THINKS WILL RESOLVE ONCE SHE GETS HOME. PATIENT UP INDEPENDENTLY IN THE ROOM. PATIENT STEADY ON HER FEET. DISCHARGE MEDICATIONS FAXED PER PATIENT REQUEST. DISCHARGE EDUCATION AND INSTRUCTIONS PROVIDED. ALL QUESTIONS AND CONCERNS ADDRESSED. PATIENT DISCHARGED IN WHEELCHAIR WITH HAIR BALER. PATIENT STABLE AT TIME OF DISCHARGE.
--- NOTE | 2021-01-20 08:54 | NUR ---
Per Dr. Welch discharge appropriate on 01/15/21. Patient was aware of discharge and did not oppose. Patient was discharged to her residence. Discharged medications faxed per patient request. Discharge education and instructions provided. All questions and concerns addressed. Patient discharged in wheelchair with FIELD IDENTIFICATION SPECIALIST. Patient stable at time of discharge with no barriers to discharge. Follow up appointment with PCP scheduled. Patient to contact PCP prior to appt if she has any questions or concerns.
== END 2021-01-15 15:13 | disposition home or self-care (01) | DRG 871 ==
LOC: ER 19:21 → ERHOLD 22:21 → ICUE 22:21 → PCU 01-11 15:44 → MEDS 01-12 11:24
PROVIDERS: Emergency Medicine; Family Medicine; Internal Medicine Endocrinology, Diabetes & Metabolism; Physician Assistant; Student in an Organized Health Care Education/Training Program; ADMIT Internal Medicine
PROC: 3E02340 Introduction of Influenza Vaccine into Muscle, Percutaneous Approach (ICD-10-PCS; 2021-01-09)
PROC: 3E033XZ Introduction of Vasopressor into Peripheral Vein, Percutaneous Approach (ICD-10-PCS; principal; 2021-01-10)
DX: A41.9 Sepsis, unspecified organism (principal); J18.9 Pneumonia, unspecified organism; J96.01 Acute respiratory failure with hypoxia; J44.0 Chronic obstructive pulmonary disease with (acute) lower respiratory infection; Q60.0 Renal agenesis, unilateral; J44.1 Chronic obstructive pulmonary disease with (acute) exacerbation; E87.1 Hypo-osmolality and hyponatremia; F17.210 Nicotine dependence, cigarettes, uncomplicated; Z20.822 Contact with and (suspected) exposure to COVID-19; K44.9 Diaphragmatic hernia without obstruction or gangrene; R65.20 Severe sepsis without septic shock; E66.3 Overweight; Z23 Encounter for immunization; K59.09 Other constipation; E03.9 Hypothyroidism, unspecified; D50.9 Iron deficiency anemia, unspecified; M81.0 Age-related osteoporosis without current pathological fracture; Z88.2 Allergy status to sulfonamides; Z88.0 Allergy status to penicillin; Z91.040 Latex allergy status; Z90.49 Acquired absence of other specified parts of digestive tract; Z90.89 Acquired absence of other organs; Z98.890 Other specified postprocedural states; Z98.49 Cataract extraction status, unspecified eye; Z79.82 Long term (current) use of aspirin; Z79.83 Long term (current) use of bisphosphonates; Z79.84 Long term (current) use of oral hypoglycemic drugs; Z79.899 Other long term (current) drug therapy
CPT/HCPCS: 0241U; 36415; 71045; 71046; 72040; 80048; 80053; 80069; 81001; 82272; 82728; 82947; 83540; 83550; 83605; 83735; 83880; 84145; 84484; 85025; 87040; 87070; 87086; 87205; 87449; 93005; 93010; 94640; 94664; 94760; 94761; 94762; 96365; 96366; 96367; 97110; 97162; 97166; 97530; 97535; 99285-25; A9270; C1751; J0696; J1650; J2920; J2930; J3480; J7030; J7050; J7060; J7512

== ENCOUNTER 2021-02-12 19:01 | Emergency (ER) | payer MEDICARE ==
[~2021-02-12] VITALS: Ht 157.5 cm; Wt 69.8 kg
[~2021-02-12 19:01] MED LIST changes: +ALEN10 PO; +ATOR40TA PO; +BREO ELLIPTA 21 EAC1 INH; +EUTHYROX88 MC1 PO; +IPRAT-ALBUT 0.5-3 ML INH; +METFORMIN HCL500 M2 PO; +METOPROLOL TART25 MG PO; +MONT10T PO; +NYSTATIN15 GM TOP; +PANTOPRAZOLE SO40 M2 PO; +Prednisone10 MG PO; +TIOT18 INH
[2021-02-12] MEDS ORDERED: CYCL10 PO (22:51)
[2021-02-12] MEDS ORDERED: LIDO700A20 TOP (22:51)
[2021-02-12] MEDS ORDERED: HYDR1TAB94 PO (22:51)
== END 2021-02-13 00:28 | disposition home or self-care (01) ==
LOC: ER 19:01
DX: M25.551 Pain in right hip (principal); Z88.0 Allergy status to penicillin; Z88.2 Allergy status to sulfonamides; Z91.040 Latex allergy status; Z79.899 Other long term (current) drug therapy; Z79.82 Long term (current) use of aspirin; Z79.84 Long term (current) use of oral hypoglycemic drugs; Z79.52 Long term (current) use of systemic steroids; J44.9 Chronic obstructive pulmonary disease, unspecified; E03.9 Hypothyroidism, unspecified; F17.210 Nicotine dependence, cigarettes, uncomplicated
CPT/HCPCS: 73502; A9270

== ENCOUNTER 2022-02-02 18:12 | Inpatient (IN) | payer MEDICARE ==
[~2022-02-02] VITALS: Ht 152.4 cm; Wt 69.5 kg
[~2022-02-02 18:12] MED LIST changes: +CYCL10 PO; +HYDR1TAB94 PO; +LIDO700A20 TOP; +ONDA4ODT MM
[2022-02-02 19:37] LABS: BASOPHILS ABSOLUTE AUTO 0.04 K/mm3 (0.00-0.23); BASOPHILS PERCENT AUTO 0 % (0-2); EOSINOPHILS ABSOLUTE AUTO 0.02 K/mm3 (0.00-0.68); EOSINOPHILS PERCENT AUTO 0 % (0-6); IMMATURE GRAN ABSOLUTE AUTO 0.05 K/mm3 (0.00-0.10); IMMATURE GRAN PERCENT AUTO 1 % (0-1); LYMPHOCYTES PERCENT AUTO 12 % (21-46); MONOCYTES ABSOLUTE AUTO 0.89 K/mm3 (0.16-1.47); MONOCYTES PERCENT AUTO 8 % (4-13); Mean Corpuscular HGB 25.7 pg (26.0-34.0); Mean Corpuscular HGB Conc 32.5 g/dL (31.5-36.5); Mean Corpuscular Volume 79 fL (80-100); Mean Platelet Volume 10.2 fL (9.1-12.4); NEUTROPHILS ABSOLUTE AUTO 8.61 K/mm3 (1.96-9.15); NEUTROPHILS PERCENT AUTO 79 % (41-73); Platelet Count 327 K/mm3 (150-400); RDW Coefficient Variation 18.2 % (11.7-14.2); RDW Standard Deviation 52.1 fL (35.1-46.3); Red Blood Cell Count 5.05 M/mm3 (3.80-5.20); White Blood Cell Count 10.91 K/mm3 (4.00-11.30)
[2022-02-02 20:05] LABS: Albumin/Globulin Ratio 0.7 (0.8-1.8); Bilirubin, Total 0.6 mg/dL (0.1-1.0); Bun/Creatinine Ratio 26.8 (12.0-20.0); Calcium, Blood 8.7 mg/dL (8.5-10.1); Creatinine, Blood 1.53 mg/dL (0.40-1.00); Globulin, Blood 4.4 g/dL (2.2-4.0); Potassium, Blood 3.8 mmol/L (3.5-5.5); Total Protein, Blood 7.4 g/dL (6.4-8.2)
[2022-02-02 20:30] LABS: Bicarbonate Venous 23.9 mmol/L (24.0-30.0); PCO2 Venous 51.7 mmHg (38-42); pH Blood Venous 7.33 (7.34-7.37)
[2022-02-02 21:51] LABS: Influenza B, PCR NEGATIVE (NEGATIVE); Resp Syncytial Virus, PCR NEGATIVE (NEGATIVE); SARS-Cov-2 (COVID-19) PCR, MMC NEGATIVE (NEGATIVE)
[2022-02-02 23:04] LABS: Influenza A, PCR POSITIVE (NEGATIVE)
[2022-02-03 09:34] LABS: BASOPHILS ABSOLUTE AUTO 0.01 K/mm3 (0.00-0.23); BASOPHILS PERCENT AUTO 0 % (0-2); EOSINOPHILS PERCENT AUTO 0 % (0-6); Hematocrit 32.1 % (33.0-51.0); Hemoglobin 10.4 g/dL (11.5-16.0); Mean Corpuscular HGB 25.6 pg (26.0-34.0); Mean Corpuscular HGB Conc 32.4 g/dL (31.5-36.5); Mean Corpuscular Volume 79 fL (80-100); Mean Platelet Volume 10.1 fL (9.1-12.4); Platelet Count 264 K/mm3 (150-400); RDW Coefficient Variation 18.1 % (11.7-14.2); RDW Standard Deviation 52.4 fL (35.1-46.3); Red Blood Cell Count 4.07 M/mm3 (3.80-5.20)
[2022-02-03 09:35] LABS: IMMATURE GRAN ABSOLUTE AUTO 0.03 K/mm3 (0.00-0.10); IMMATURE GRAN PERCENT AUTO 0 % (0-1); LYMPHOCYTES ABSOLUTE AUTO 0.53 K/mm3 (0.84-5.20); LYMPHOCYTES PERCENT AUTO 7 % (21-46); MONOCYTES ABSOLUTE AUTO 0.15 K/mm3 (0.16-1.47); MONOCYTES PERCENT AUTO 2 % (4-13); NEUTROPHILS ABSOLUTE AUTO 6.98 K/mm3 (1.96-9.15); NEUTROPHILS PERCENT AUTO 91 % (41-73)
[2022-02-03 10:10] LABS: Albumin, Blood 2.3 g/dL (3.4-5.0); Albumin/Globulin Ratio 0.7 (0.8-1.8); Bilirubin, Total 0.3 mg/dL (0.1-1.0); Bun/Creatinine Ratio 30.9 (12.0-20.0); Calcium, Blood 7.7 mg/dL (8.5-10.1); Creatinine, Blood 0.78 mg/dL (0.40-1.00); Globulin, Blood 3.3 g/dL (2.2-4.0); Potassium, Blood 4.2 mmol/L (3.5-5.5); Total Protein, Blood 5.6 g/dL (6.4-8.2)
--- NOTE | 2022-02-03 17:39 | NUR ---
SHIFT SUMMARY PT HAS BEEN RESTING IN ROOM SINCE ARRIVAL FROM ED. PT HAS HAD DIFFICULTY REMEMBERING TO CALL FOR ASSISTANCE. BLOOD PRESSURE HAS PERSISTED LOW WITH A HIGH MEASUREMENT OF 109 SBP. NASAL CANNULA WAS REMOVED ON ARRIVAL AND SPO2 HAS REMAINED >90%.
[2022-02-04 05:07] LABS: BASOPHILS PERCENT AUTO 0 % (0-2); EOSINOPHILS PERCENT AUTO 0 % (0-6); Hemoglobin 10.4 g/dL (11.5-16.0); Mean Corpuscular HGB 25.4 pg (26.0-34.0); Mean Corpuscular HGB Conc 31.5 g/dL (31.5-36.5); Mean Corpuscular Volume 81 fL (80-100); Mean Platelet Volume 10.3 fL (9.1-12.4); Platelet Count 277 K/mm3 (150-400); RDW Coefficient Variation 18.2 % (11.7-14.2); RDW Standard Deviation 53.3 fL (35.1-46.3); White Blood Cell Count 6.11 K/mm3 (4.00-11.30)
[2022-02-04 05:11] LABS: IMMATURE GRAN ABSOLUTE AUTO 0.04 K/mm3 (0.00-0.10); IMMATURE GRAN PERCENT AUTO 1 % (0-1); LYMPHOCYTES ABSOLUTE AUTO 0.91 K/mm3 (0.84-5.20); LYMPHOCYTES PERCENT AUTO 15 % (21-46); MONOCYTES ABSOLUTE AUTO 0.23 K/mm3 (0.16-1.47); MONOCYTES PERCENT AUTO 4 % (4-13); NEUTROPHILS ABSOLUTE AUTO 4.93 K/mm3 (1.96-9.15); NEUTROPHILS PERCENT AUTO 81 % (41-73)
[2022-02-04 05:43] LABS: Albumin, Blood 2.4 g/dL (3.4-5.0); Albumin/Globulin Ratio 0.7 (0.8-1.8); Bilirubin, Total 0.4 mg/dL (0.1-1.0); Bun/Creatinine Ratio 24.9 (12.0-20.0); Calcium, Blood 7.9 mg/dL (8.5-10.1); Creatinine, Blood 0.68 mg/dL (0.40-1.00); Globulin, Blood 3.5 g/dL (2.2-4.0); Percent Saturation 7.5 % (15.0-50.0); Potassium, Blood 3.3 mmol/L (3.5-5.5); Total Protein, Blood 5.9 g/dL (6.4-8.2)
--- NOTE | 2022-02-04 05:51 | NUR ---
SHIFT SUMMARY A/OX4, SBA TO BATHROOM. SATS GREATER THAN 92 ON RA. NS RUNNING AT 75 ML/HR. BP'S CONTINUE TO BE SOFT WITH MAP GREATER THAN 70. NO ACUTE CHANGES AT THIS TIME. BED IN LOWEST POSIITON WITH CALL LIGHT IN REACH. WILL CONTINUE TO MONITOR AND REPORT TO ONCOMING RN.
--- NOTE | 2022-02-04 14:15 | NUR ---
Pt states that she has been using her flutter valve and incentive spirometer which were given to her this morning. Lung sounds remain wheezy throughout, and now also having crackles in the upper lobes. call to RT to request ventolin inhaler per pt request.
--- NOTE | 2022-02-04 17:19 | NUR ---
Declines to get OOB to sit in chair for meals. Refuses to sit on side of bed, states that it hurts her neck due to lack of back support and her osteoarthritis. Sitting in bed, propped up on left elbow, to eat dinner. Declined offer of extra pillows to assist her in more upright position.
--- NOTE | 2022-02-04 21:51 | NUR ---
ASSUMPTION OF CARE THIS RN ASSUMED CARE OF PATIENT AT 1900. REPORT TAKEN FROM ROYCE BRUNO. PATIENT ALERT AND ORIENTED FULLY WITH OCCASIONAL FORGETFULNESS OF CARE DONE AND STAFF THAT HAVE ASSISTED HER PREVIOUSLY. PATIENT INSTRUCTED ON USING INCENTIVE SPIROMETER AND FLUTTER VALVE WITH DAUGHTER AT BEDSIDE FOR EDUCATION. PATIENT VERBALIZED UNDERSTANDING HOW TO USE BOTH AND STATED THAT SHE WOULD USE THEM MORE OFTEN. PRN BREATHING TREATMENT DONE BY RT AFTER SHIFT CHANGE. PATIENT WITH STABLE VITALS AT THIS TIME. MEDICATED PER EMAR. WHEEZES HEARD THROUGHOUT BUT MORE PROMINENT ON THE LEFT LOBES. PATIENT CALLING APPROPRIATELY. BED IN LOWEST POSITION AND CALL LIGHT WITHIN REACH.
[2022-02-05 04:26] LABS: BASOPHILS ABSOLUTE AUTO 0.02 K/mm3 (0.00-0.23); BASOPHILS PERCENT AUTO 0 % (0-2); EOSINOPHILS PERCENT AUTO 0 % (0-6); Hematocrit 31.1 % (33.0-51.0); Hemoglobin 9.9 g/dL (11.5-16.0); Mean Corpuscular HGB 25.8 pg (26.0-34.0); Mean Corpuscular HGB Conc 31.8 g/dL (31.5-36.5); Mean Corpuscular Volume 81 fL (80-100); Mean Platelet Volume 10.3 fL (9.1-12.4); NRBC ABSOLUTE 0.03 K/mm3 (0.00-0.02); NRBC Auto 0.2 /100 WBC (0.0-0.2); Platelet Count 291 K/mm3 (150-400); RDW Coefficient Variation 18.5 % (11.7-14.2); RDW Standard Deviation 54.9 fL (35.1-46.3); Red Blood Cell Count 3.83 M/mm3 (3.80-5.20); White Blood Cell Count 12.07 K/mm3 (4.00-11.30)
[2022-02-05 04:41] LABS: IMMATURE GRAN ABSOLUTE AUTO 0.17 K/mm3 (0.00-0.10); IMMATURE GRAN PERCENT AUTO 1 % (0-1); LYMPHOCYTES ABSOLUTE AUTO 1.38 K/mm3 (0.84-5.20); LYMPHOCYTES PERCENT AUTO 11 % (21-46); MONOCYTES PERCENT AUTO 8 % (4-13); NEUTROPHILS PERCENT AUTO 79 % (41-73)
--- NOTE | 2022-02-05 04:56 | NUR ---
SHIFT SUMMARY NO ACUTE CHANGES OVERNIGHT. PATIENT WITH STABLE VITALS. ON ROOM AIR. NO TELE. PRN BREATHING TREATMENTS GIVEN DURING THE SHIFT. PATIENT REPORTS SOB WITH EXERTION. WHEEZES HEARD IN ALL LOBES DESPITE BREATHING TREATMENTS. PATIENT IS ABLE TO MAKE NEEDS KNOWN. ALERT AND ORIENTED FULLY WITH OCASSIONAL EPISODES OF FORGETFULNESS. NO FURTHER CHANGES SINCE PREVIOUS NOTE. SEE ASSESSMENT. NS INFUSING AT 75MLS/HR. SBA TO THE BATHROOM. BED IN LOWEST POSITION AND CALL LIGHT WITHIN REACH. THIS RN WILL CONTINUE TO MONITOR AND PROVIDE INTERVENTIONS UNTIL SHIFT CHANGE AT 0700.
[2022-02-05 05:01] LABS: Albumin, Blood 2.4 g/dL (3.4-5.0); Albumin/Globulin Ratio 0.7 (0.8-1.8); Bilirubin, Total 0.4 mg/dL (0.1-1.0); Bun/Creatinine Ratio 21.9 (12.0-20.0); Calcium, Blood 7.8 mg/dL (8.5-10.1); Creatinine, Blood 0.69 mg/dL (0.40-1.00); Globulin, Blood 3.3 g/dL (2.2-4.0); Total Protein, Blood 5.7 g/dL (6.4-8.2)
--- NOTE | 2022-02-05 11:39 | NUR ---
Pt independently ambulatory to the bathroom to void. Audibly wheezing and crackles after the activity tachypneic and spo2 87-89% following. Sitting on side of bed, recovery after 1 minute spo2 94%, dyspnea is resolving and pt is no longer audibly wheezing. Crackles and wheezing continue to be auscultated throughout the lungs to stethoscope. Pt encouraged to continue with incentive spirometry and flutter valve use while lying in bed.
--- NOTE | 2022-02-05 17:38 | NUR ---
Alert, oriented, and no complaints this afternoon nor evening. She has had a good appetite, states that she feels ready to go home tomorrow. She has been walking independently to the bathroom, with some dyspnea, but recovery is within 2-3 minutes after the activity. She has needed no supplemental oxygen. Blood sugar is normalizing, and perhaps blood pressure, too. This morning her systolic BP was 87,and blood pressure this afternoon was 130 systolic. Midodrine was held this afternoon, but given this evening when systolic was again 117.
--- NOTE | 2022-02-05 23:03 | NUR ---
ASSUMPTION OF CARE THIS RN ASSUMED CARE OF PATIENT AT 1900. REPORT TAKEN FROM ROYCE BRUNO. PATIENT IS ALERT AND ORIENTED FULLY BUT OCCASIONALLY FORGETFUL. VITALS STABLE. PATIENT CONTINUES TO HAVE WHEEZES HEARD IN ALL LOBES; PRN BREATHING TREATMENTS. PATIENT INDEPENDENT WITH ADL'S. ABLE TO MAKE NEEDS KNOWN. BED IN LOWEST POSITION AND CALL LIGHT WITHIN REACH.
--- NOTE | 2022-02-06 05:36 | NUR ---
SHIFT SUMMARY NO ACUTE CHANGES OVERNIGHT. PATIENT WITH STABLE VITALS. NO CHANGES TO NEURO/RESP/CARDIAC SINCE PREVIOUS NOTE. PATIENT IS INDEPENDENT IN ROOM. ABLE TO MAKE NEEDS KNOWN AND CALLS APPROPRIATELY. BED IN LOWEST POSITION AND CALL LIGHT WITHIN REACH. THIS RN WILL CONTINUE TO MONITOR UNTIL SHIFT CHANGE AT 0700.
[2022-02-06 06:19] LABS: Hemoglobin 11.1 g/dL (11.5-16.0); Mean Corpuscular HGB 25.4 pg (26.0-34.0); Mean Corpuscular HGB Conc 31.7 g/dL (31.5-36.5); Mean Corpuscular Volume 80 fL (80-100); Mean Platelet Volume 10.2 fL (9.1-12.4); NRBC ABSOLUTE 0.02 K/mm3 (0.00-0.02); NRBC Auto 0.2 /100 WBC (0.0-0.2); Platelet Count 318 K/mm3 (150-400); RDW Coefficient Variation 18.6 % (11.7-14.2); RDW Standard Deviation 53.7 fL (35.1-46.3); Red Blood Cell Count 4.37 M/mm3 (3.80-5.20); White Blood Cell Count 9.98 K/mm3 (4.00-11.30)
[2022-02-06 07:43] LABS: Albumin, Blood 2.7 g/dL (3.4-5.0); Albumin/Globulin Ratio 0.8 (0.8-1.8); Bilirubin, Total 0.5 mg/dL (0.1-1.0); Bun/Creatinine Ratio 14.8 (12.0-20.0); Calcium, Blood 8.4 mg/dL (8.5-10.1); Creatinine, Blood 0.74 mg/dL (0.40-1.00); Globulin, Blood 3.3 g/dL (2.2-4.0); Potassium, Blood 3.4 mmol/L (3.5-5.5)
[2022-02-06 08:31] LABS: BASOPHILS PERCENT MAN 0 % (0-2); EOSINOPHILS PERCENT MAN 0 % (0-6); LYMPHOCYTES ABSOLUTE MAN 5.08 K/mm3 (0.84-5.20); LYMPHOCYTES PERCENT MAN 51 % (21-46); MONOCYTES ABSOLUTE MAN 0.79 K/mm3 (0.16-1.47); MONOCYTES PERCENT MAN 8 % (4-13); MYELOCYTE ABSOLUTE MAN 0.29 K/mm3 (0.00-0.00); MYELOCYTE PERCENT MAN 3 % (0-0); NEUTROPHILS ABSOLUTE MAN 3.79 K/mm3 (1.96-9.15); SEG NEUTROPHILS PERCENT MAN 38 % (41-73); TOTAL CELLS COUNTED 100
--- NOTE | 2022-02-06 11:21 | NUR ---
AM NOTE: PATIENT ALERT AND ORIENTED X4. DENIES NUMBNESS/TINGLING. UP IND TO BATHROOM. PERRLA. ON ROOM AIR SATING LOW 90'S. INTERMIT WHEEZING, BREATHING TREATMENTS PER RESP. OCCASIONAL COUGH. MEDICAL STATUS, NO TELE. BP STABLE WELL HR. DENIES CHEST PAIN/PRESSURE. VITAL SIGNS STABLE. USING BATHROOM TO VOID. DENIES ABDOMINAL PAIN/NAUSEA. EATING WNL. ACHS BLOOD SUGARS WNL. ANXIOUS TO GET HOME. SPOKE WITH DR. PARADA THIS AM, POSSIBLE DISCHARGE.
[2022-02-06] MEDS ORDERED: ALBU90OI INH (12:37)
[2022-02-06] MEDS ORDERED: OSEL12SU2 PO (12:39)
[2022-02-06] MEDS ORDERED: PRED20 PO (13:03)
--- NOTE | 2022-02-06 14:23 | NUR ---
DISCHARGE: SEE PREVIOUS NOTES FOR UPDATES. PATIENT DISCHARGE WNL. IV REMOVED. INSTRUCTIONS REVIEWED. PATIENT AND SPOUSE AT BEDSIDE FOR DISCHARGE INSRUCTIONS. MEDICATIONS, FOLLOW UP APPOINTMENTS AND EDUCATIONS REVIEWED. LEFT UNIT VIA WHEELCHAIR WITH ALL PERSONAL BELONGINGS.
== END 2022-02-06 13:25 | disposition home or self-care (01) | DRG 871 ==
LOC: ER 18:12 → ERHOLD 21:09 → PCU 02-03 11:25
PROVIDERS: Emergency Medicine; Internal Medicine; Student in an Organized Health Care Education/Training Program; ADMIT Internal Medicine
DX: A41.9 Sepsis, unspecified organism (principal); J96.01 Acute respiratory failure with hypoxia; J96.02 Acute respiratory failure with hypercapnia; J44.1 Chronic obstructive pulmonary disease with (acute) exacerbation; E87.29 Other acidosis; Q60.2 Renal agenesis, unspecified; J10.1 Influenza due to other identified influenza virus with other respiratory manifestations; M81.0 Age-related osteoporosis without current pathological fracture; F17.210 Nicotine dependence, cigarettes, uncomplicated; E03.9 Hypothyroidism, unspecified; E11.9 Type 2 diabetes mellitus without complications; K21.9 Gastro-esophageal reflux disease without esophagitis; M51.9 Unspecified thoracic, thoracolumbar and lumbosacral intervertebral disc disorder; I95.89 Other hypotension; D50.9 Iron deficiency anemia, unspecified; Z20.822 Contact with and (suspected) exposure to COVID-19; Z88.0 Allergy status to penicillin; Z88.2 Allergy status to sulfonamides; Z91.040 Latex allergy status; Z79.82 Long term (current) use of aspirin; Z79.899 Other long term (current) drug therapy; Z79.84 Long term (current) use of oral hypoglycemic drugs; Z79.02 Long term (current) use of antithrombotics/antiplatelets; Z79.52 Long term (current) use of systemic steroids; Z79.891 Long term (current) use of opiate analgesic; Z90.49 Acquired absence of other specified parts of digestive tract; Z98.890 Other specified postprocedural states; Z98.49 Cataract extraction status, unspecified eye; Z79.51 Long term (current) use of inhaled steroids; Z91.14 Patient's other noncompliance with medication regimen
CPT/HCPCS: 0241U; 36415; 71045; 80053; 82728; 82803; 82947; 83540; 83550; 83605; 83690; 83880; 84484; 85025; 87040; 93005; 93010; 94640; 94644; 94664; 94760; 96361; 96365; 96375; 96376; 99285-25; A9270; G0378; J0696; J1650; J2930; J7030; J7512

== ENCOUNTER 2022-06-10 19:52 | Inpatient (IN) | payer MEDICARE ==
[~2022-06-10] VITALS: Ht 157.5 cm; Wt 63.7 kg
[~2022-06-10 19:52] MED LIST changes: +ALBU90OI INH; +OSEL12SU2 PO; +PRED20 PO
[2022-06-10 21:12] LABS: BASOPHILS ABSOLUTE AUTO 0.11 K/mm3 (0.00-0.23); BASOPHILS PERCENT AUTO 0 % (0-2); EOSINOPHILS PERCENT AUTO 0 % (0-6); Hematocrit 37.8 % (33.0-51.0); Hemoglobin 11.9 g/dL (11.5-16.0); IMMATURE GRAN ABSOLUTE AUTO 1.78 K/mm3 (0.00-0.10); IMMATURE GRAN PERCENT AUTO 5 % (0-1); LYMPHOCYTES ABSOLUTE AUTO 1.87 K/mm3 (0.84-5.20); LYMPHOCYTES PERCENT AUTO 5 % (21-46); MONOCYTES ABSOLUTE AUTO 2.94 K/mm3 (0.16-1.47); MONOCYTES PERCENT AUTO 8 % (4-13); Mean Corpuscular HGB 24.9 pg (26.0-34.0); Mean Corpuscular HGB Conc 31.5 g/dL (31.5-36.5); Mean Corpuscular Volume 79 fL (80-100); Mean Platelet Volume 9.8 fL (9.1-12.4); NEUTROPHILS ABSOLUTE AUTO 31.79 K/mm3 (1.96-9.15); NEUTROPHILS PERCENT AUTO 83 % (41-73); Platelet Count 341 K/mm3 (150-400); RDW Coefficient Variation 17.4 % (11.7-14.2); RDW Standard Deviation 50.4 fL (35.1-46.3); Red Blood Cell Count 4.78 M/mm3 (3.80-5.20); White Blood Cell Count 38.49 K/mm3 (4.00-11.30)
[2022-06-10 21:36] LABS: Albumin, Blood 2.7 g/dL (3.4-5.0); Albumin/Globulin Ratio 0.6 (0.8-1.8); Bilirubin, Total 1.7 mg/dL (0.1-1.0); Bun/Creatinine Ratio 26.9 (12.0-20.0); Calcium, Blood 9.1 mg/dL (8.5-10.1); Creatinine, Blood 0.89 mg/dL (0.40-1.00); Globulin, Blood 4.8 g/dL (2.2-4.0); Potassium, Blood 4.1 mmol/L (3.5-5.5); Total Protein, Blood 7.5 g/dL (6.4-8.2)
[2022-06-10 23:58] VITALS: BP 83/30
[2022-06-11 00:08] VITALS: BP 109/94
--- NOTE | 2022-06-11 02:29 | NUR ---
PT HOME MED I DID REQUEST PT'S FAMILY TO BRING IN HER HOME MEDICATION (FOSAMAX/ALENDRONIC ACID). PT'S DAUGHTER STATES SHE WILL BRING THE MEDICATION IN THE MORNING
--- NOTE | 2022-06-11 02:32 | NUR ---
ADMIT NOTE *LATE ENTRY 0013 HRS* HANDOFF RECEIVED FROM PROCESSING TECHKIANA ALVARENGA. PT ARRIVED TO FLOOR VIA GURNEY. PT ORIENTED TO UNIT. TELEMETRY PUT IN PLACE: NSR @ 91 BPM. IV FLUIDS INFUSING ORDERED. PERSONAL POSSESSIONS WITH PT. CALL BUTTON WITHIN REACH. BED ALARM IS ACTIVE.
--- NOTE | 2022-06-11 04:28 | NUR ---
SHIFT SUMMARY ADMITTED FOR PNEUMONIA/SEPSIS. FULL CODE. PLAN IS FOR IV ANTIB RX, IV FLUIDS, BLOOD CX'S, SOLUMEDROL. TELEMETRY: NSR @ 83 BPM. SHE DENIES PAIN THIS SHIFT. SHE IS A STANDBY ASSIST-BRP. A&O X4. LACTIC WAS WNL. REGULAR DIET. HX OF COPD, RENAL AGENESIS.
[2022-06-11 04:50] LABS: Hematocrit 33.8 % (33.0-51.0); Hemoglobin 10.5 g/dL (11.5-16.0); Mean Corpuscular HGB 24.9 pg (26.0-34.0); Mean Corpuscular HGB Conc 31.1 g/dL (31.5-36.5); Mean Corpuscular Volume 80 fL (80-100); Mean Platelet Volume 10.2 fL (9.1-12.4); Platelet Count 305 K/mm3 (150-400); RDW Coefficient Variation 17.3 % (11.7-14.2); RDW Standard Deviation 50.4 fL (35.1-46.3); Red Blood Cell Count 4.21 M/mm3 (3.80-5.20); White Blood Cell Count 30.03 K/mm3 (4.00-11.30)
[2022-06-11 05:08] LABS: Bun/Creatinine Ratio 28.7 (12.0-20.0); Calcium, Blood 7.6 mg/dL (8.5-10.1); Creatinine, Blood 0.77 mg/dL (0.40-1.00); Potassium, Blood 3.8 mmol/L (3.5-5.5)
[2022-06-11 07:44] VITALS: BP 139/62
--- NOTE | 2022-06-11 14:22 | NUR ---
Pt resting in bed and is A&OX4. Reviewed plan of care and Pt reports hoping to D/C home tomorrow. Offered therapeutic listening as Pt reports being , having 3 adult children, and grandchildren. She reports being for over 60 years. Pt reports adequate support at home as she lives with her and daughter. Continued therapeutic listening as Pt reminisces about the past and living in [place]. Pt reports being independent of her ADLs. Engaged in therapeutic discussion regarding code status wishes. Educated on life sustaining treatments including risks and implications to CPR/Intubation. Pt reports wishes are Full Code. She denies need to complete a POLST. Pt reports no concerns at this time. Palliative Care will remain available
[2022-06-11 15:34] VITALS: BP 148/61
--- NOTE | 2022-06-11 18:20 | NUR ---
SHIFT SUMMARY PT RESTING COMFORTABLY IN BED. FAMILY AT BEDSIDE. SHE IS A/O X4. SHE HAS NEEDED RESPIRATORY TREATMENTS A COUPLE TIMES THROUGHTOUT THE SHIFT FOR SOB. SHE IS CONT OF BOWEL AND BLADDER AND TRANSFERS TO THE BATHROOM IND. SHE HAS TOLERATED IV FLUIDS THROUGHOUT THE DAY. SHE IS ON TELE RUNNING NSR IN THE 90S. CALL LIGHT IS IN REACH, NO CURRENT QUESTIONS OR NEEDS.
[2022-06-11 19:52] VITALS: BP 88/52
--- NOTE | 2022-06-12 04:08 | NUR ---
SHIFT SUMMARY ADMIT FOR SEPSIS PNA PT PLEASANT. SLEPT MOST OF THE NIGHT. ABLE TO AMBULATE WELL INDEPENDENTLY TO BATHROOM. PT EXPRESSED DISLIKE OF AEROCHAMBER FOR INHALER, REQUESTED IT NOT BE USED. FINISHED FLUID ADMIN TONIGHT. STILL TOLLERATING REGULAR DIET. DISCUSSED WITH THIS STUDENT NURSE THAT SHE FELT "PAIN IN MY RIGHT LUNG" FOR THE FIRST TIME SINCE DX EARLIER IN SHIFT. CHETAN WEINBERG, AND ANOTHER GENTLEMAN CAME BY TO VISIT HER TONIGHT. SHE SEEMS IN GOOD SPIRITS, WILL POSSIBLY BE DC'D HOME TODAY 06/12/22.
--- NOTE | 2022-06-12 04:49 | NUR ---
CTA NOTE I HAVE READ THE PRINT SUPPORT SPECIALIST NOTES AND I AGREE WITH HER DOCUMENTATION. PLEASE SEE PRINT SUPPORT SPECIALIST NOTE FOR SHIFT SUMMARY
[2022-06-12 07:19] VITALS: BP 157/63
[2022-06-12] MEDS ORDERED: MASOPHEN325 MG PO (10:53)
[2022-06-12] MEDS ORDERED: AZIT250 PO (10:54)
[2022-06-12] MEDS ORDERED: CEFP50SU PO (10:55)
[2022-06-12] MEDS ORDERED: VISBIOME 112.51 EACH PO (10:57)
[2022-06-12] MEDS ORDERED: Prednisone10 MG PO (10:58)
--- NOTE | 2022-06-12 11:29 | NUR ---
Discharge summary: Discharge instructions reviewed with return verbal understanding. Meds needed Rx faxed for [place] [facility], MARIO rachel'd. Tele box removed and returned. Pt awaiting ride arrival.
== END 2022-06-12 14:25 | disposition home or self-care (01) | DRG 871 ==
LOC: ER 19:52 → MEDS 22:58
PROVIDERS: Student in an Organized Health Care Education/Training Program; ADMIT Internal Medicine
DX: A41.9 Sepsis, unspecified organism (principal); J18.9 Pneumonia, unspecified organism; J96.01 Acute respiratory failure with hypoxia; E87.1 Hypo-osmolality and hyponatremia; J44.0 Chronic obstructive pulmonary disease with (acute) lower respiratory infection; J44.1 Chronic obstructive pulmonary disease with (acute) exacerbation; Q60.2 Renal agenesis, unspecified; E03.9 Hypothyroidism, unspecified; E78.5 Hyperlipidemia, unspecified; M81.0 Age-related osteoporosis without current pathological fracture; I10 Essential (primary) hypertension; Z88.0 Allergy status to penicillin; Z88.2 Allergy status to sulfonamides; Z91.040 Latex allergy status; Z79.899 Other long term (current) drug therapy; Z79.51 Long term (current) use of inhaled steroids; Z79.52 Long term (current) use of systemic steroids; Z79.02 Long term (current) use of antithrombotics/antiplatelets; Z90.49 Acquired absence of other specified parts of digestive tract; Z98.890 Other specified postprocedural states; Z98.49 Cataract extraction status, unspecified eye; Z87.891 Personal history of nicotine dependence
CPT/HCPCS: 36415; 71046; 80048; 80053; 83605; 83880; 84484; 85025; 85027; 93005; 93010; 94640; 94664; 94760; 96365; 96366; 96375; 99285-25; A9270; J0456; J0696; J1650; J2930; J7030; J7050

== ENCOUNTER 2023-02-28 16:01 | Inpatient (IN) | payer OTHER ==
[~2023-02-28] VITALS: Ht 162.6 cm; Wt 68.5 kg
[~2023-02-28 16:01] MED LIST changes: +AZIT250 PO; +CEFP50SU PO; +MASOPHEN325 MG PO; +VISBIOME 112.51 EACH PO
[2023-02-28 17:14] LABS: BASOPHILS ABSOLUTE AUTO 0.07 K/mm3 (0.00-0.23); BASOPHILS PERCENT AUTO 1 % (0-2); EOSINOPHILS ABSOLUTE AUTO 0.09 K/mm3 (0.00-0.68); EOSINOPHILS PERCENT AUTO 1 % (0-6); Hematocrit 41.8 % (33.0-51.0); Hemoglobin 13.3 g/dL (11.5-16.0); IMMATURE GRAN ABSOLUTE AUTO 0.06 K/mm3 (0.00-0.10); IMMATURE GRAN PERCENT AUTO 0 % (0-1); LYMPHOCYTES ABSOLUTE AUTO 2.42 K/mm3 (0.84-5.20); LYMPHOCYTES PERCENT AUTO 18 % (21-46); MONOCYTES ABSOLUTE AUTO 1.25 K/mm3 (0.16-1.47); MONOCYTES PERCENT AUTO 9 % (4-13); Mean Corpuscular HGB 28.2 pg (26.0-34.0); Mean Corpuscular HGB Conc 31.8 g/dL (31.5-36.5); Mean Corpuscular Volume 89 fL (80-100); Mean Platelet Volume 9.8 fL (9.1-12.4); NEUTROPHILS ABSOLUTE AUTO 9.54 K/mm3 (1.96-9.15); NEUTROPHILS PERCENT AUTO 71 % (41-73); Platelet Count 279 K/mm3 (150-400); RDW Coefficient Variation 16.4 % (11.7-14.2); RDW Standard Deviation 53.8 fL (35.1-46.3); Red Blood Cell Count 4.72 M/mm3 (3.80-5.20); White Blood Cell Count 13.43 K/mm3 (4.00-11.30)
[2023-02-28 17:35] LABS: Albumin, Blood 2.9 g/dL (3.4-5.0); Albumin/Globulin Ratio 0.7 (0.8-1.8); Bilirubin, Total 0.8 mg/dL (0.1-1.0); Bun/Creatinine Ratio 13.6 (12.0-20.0); Calcium, Blood 8.7 mg/dL (8.5-10.1); Creatinine, Blood 0.81 mg/dL (0.40-1.00); Globulin, Blood 4.4 g/dL (2.2-4.0); Potassium, Blood 3.9 mmol/L (3.5-5.5); Total Protein, Blood 7.3 g/dL (6.4-8.2)
[2023-03-01] VITALS (55 sets, daily range): BP systolic 61–114; BP diastolic 41–98
[2023-03-01 01:26] LABS: Influenza A, PCR NEGATIVE (NEGATIVE); Influenza B, PCR NEGATIVE (NEGATIVE); Resp Syncytial Virus, PCR NEGATIVE (NEGATIVE); SARS-Cov-2 (COVID-19) PCR, MMC NEGATIVE (NEGATIVE)
[2023-03-01] MEDS ORDERED: DOC250 PO (04:33)
--- NOTE | 2023-03-01 05:31 | NUR ---
ARRIVAL TO ICU PT ARRIVED TO ICU 2 AT 0405 VIA ED BED AND WAS ABLE TO AMBULATE TO THE TOILET IN THE ROOM WITH MINIMAL ASSISTANCE. SHE IS A/O X4 AND ABLE TO MAKE HER NEEDS KNOWN. AT REST SPO2 >90% ON RA; DYSPNEA NOTED DURING EXERTION; WHILE SLEEPING SPO2 DROPS TO MID 80'S, PLACED ON 3L NC WHILE SLEEPING; PRODUCTIVE COUGH NOTED. NSR NOTED WITH RATE 70-80'S. SBP 70'S AND MAP 50'S WHEN LEVOPHED ON SB, PT ASYMPTOMATIC; SBP 90'S AND MAP 70'S WITH LEVOPHED INFUSING AT 2MCG/MIN. SEE ADMISSION ASSESSMENT FOR FULL ASSESSMENT.
[2023-03-01 06:06] LABS: BASOPHILS ABSOLUTE AUTO 0.05 K/mm3 (0.00-0.23); BASOPHILS PERCENT AUTO 0 % (0-2); EOSINOPHILS PERCENT AUTO 0 % (0-6); Hematocrit 36.1 % (33.0-51.0); Hemoglobin 11.5 g/dL (11.5-16.0); Mean Corpuscular HGB Conc 31.9 g/dL (31.5-36.5); Mean Corpuscular Volume 88 fL (80-100); Mean Platelet Volume 10.3 fL (9.1-12.4); Platelet Count 284 K/mm3 (150-400); RDW Coefficient Variation 16.2 % (11.7-14.2); RDW Standard Deviation 52.8 fL (35.1-46.3); White Blood Cell Count 15.29 K/mm3 (4.00-11.30)
[2023-03-01 06:08] LABS: IMMATURE GRAN PERCENT AUTO 1 % (0-1); LYMPHOCYTES ABSOLUTE AUTO 0.65 K/mm3 (0.84-5.20); LYMPHOCYTES PERCENT AUTO 4 % (21-46); MONOCYTES ABSOLUTE AUTO 0.12 K/mm3 (0.16-1.47); MONOCYTES PERCENT AUTO 1 % (4-13); NEUTROPHILS ABSOLUTE AUTO 14.37 K/mm3 (1.96-9.15); NEUTROPHILS PERCENT AUTO 94 % (41-73)
[2023-03-01 06:33] LABS: Bun/Creatinine Ratio 18.5 (12.0-20.0); Calcium, Blood 8.6 mg/dL (8.5-10.1); Creatinine, Blood 0.59 mg/dL (0.40-1.00); Potassium, Blood 4.1 mmol/L (3.5-5.5)
--- NOTE | 2023-03-01 06:55 | NUR ---
END OF SHIFT SUMMARY NO EVENTS SINCE PREVIOUS NOTE. CONT TO BE A/O X4 AND ABLE TO MAKE HER NEEDS KNOWN. ON 3L NC FOR SPO2 >96%. AFEBRILE. HR 70-80'S. LEVOPHED INFUSING AT 2MCG/MIN; SBP 90'S. WILL REPORT TO AM RN WHEN AVAILABLE.
--- NOTE | 2023-03-01 10:10 | NUR ---
CARE OF PT ASSUMED AT 0700. DURING BEDSIDE REPORT IV WITH LEVOPHED INFUSING TO LAC ALARMING. SMALL LESS THAN 0.5CM KNOT FELT OVER IV SITE. ABLE TO PULL SMALL AMT OF BLOOD BACK. IV DC'D. PT DENIES C/O PAIN TO AREA. INFILTRATION DISCUSSED WITH PHARMACIST AND DR CAMPBELL. WARM PACK PLACED, WILL CONTINUE TO OBSERVE AREA CLOSELY FOR IMPROVEMENT. MAPS AROUND 60, MIDODRINE STARTED, LR STARTED AT 75CC/HR. LUNGS COARSE T/O WITH SCATTERED WHEEZING. SATS >90% ON 2L VIA N/C. PT HAS RECEIVED SEVERAL UPDRAFTS. 1000: PT HAS BEEN HYPOTENSIVE THIS AM W MOST MAPS>65. POWERGLIDE TO BE PLACED. LEFT AC INFILTRATION SOFT AND NON-TENDER, APPEARS IMPROVED. PT HAS HAD SOME LOWER ABD CRAMPING THIS AM W SEVERAL LOOSE STOOLS.
--- NOTE | 2023-03-01 16:44 | NUR ---
LEVOPHED HAS BEEN OFF SINCE 0700 THIS AM. LEFT AC INFILTRATION SITE SOFT AND NON-TENDER, THERE IS A BRUISE THAT WAS PRESENT PRIOR TO THE INFILTRATION, AGAIN INFILTRATION WAS SMALL WITH A 0.5CM KNOT, SKIN WAS BLANCHABLE. MAJORITY OF MAPS HAVE BEEN >65 ON MIDODRINE. PT HAS BEEN UP TO TOILET/COMMODE SEVERAL TIMES T/O SHIFT FOR LOOSE STOOLS AND HAS TOLERATED BEING UP; DENIES DIZZINESS. RESP ARE SLIGHTLY LABORED WHILE UP. SATS >90% ON 2L VIA N/C. LUNGS HAVE REMAINED COARSE W SCATTERED WHEEZES T/O SHIFT, SEVERAL UPDRAFTS HAVE BEEN GIVEN.
--- NOTE | 2023-03-01 19:38 | NUR ---
ASSUMED CARE PT IS A&O X4; SPO2 >92% ON 2L NC; MAP >65; RATE IN THE 90'S. PT AMBULATED TO TOILET AT START OF SHIFT; STEADY ON FEET, BUT BECAME DYSPNEIC WITH THE EXERTION. PT HAS PRODUCTIVE COUGH; EDUCATION GIVEN ON FLUTTER VALVE AT BEDSIDE. PT IS RESTING QUIETLY AT THIS TIME. SITE OF LEVOPHED INFILTRATION ASSESSED W/ DAY SHIFT RN; SOFT AND NON-TENDER.
[2023-03-02] VITALS (42 sets, daily range): BP systolic 70–126; BP diastolic 47–89
[2023-03-02 04:06] LABS: BASOPHILS ABSOLUTE AUTO 0.02 K/mm3 (0.00-0.23); BASOPHILS PERCENT AUTO 0 % (0-2); EOSINOPHILS PERCENT AUTO 0 % (0-6); Hematocrit 35.6 % (33.0-51.0); Hemoglobin 11.4 g/dL (11.5-16.0); IMMATURE GRAN ABSOLUTE AUTO 0.11 K/mm3 (0.00-0.10); IMMATURE GRAN PERCENT AUTO 1 % (0-1); LYMPHOCYTES ABSOLUTE AUTO 1.26 K/mm3 (0.84-5.20); LYMPHOCYTES PERCENT AUTO 10 % (21-46); MONOCYTES ABSOLUTE AUTO 0.28 K/mm3 (0.16-1.47); MONOCYTES PERCENT AUTO 2 % (4-13); Mean Corpuscular HGB 27.9 pg (26.0-34.0); Mean Corpuscular Volume 87 fL (80-100); Mean Platelet Volume 10.4 fL (9.1-12.4); NEUTROPHILS ABSOLUTE AUTO 11.32 K/mm3 (1.96-9.15); NEUTROPHILS PERCENT AUTO 87 % (41-73); Platelet Count 269 K/mm3 (150-400); RDW Standard Deviation 51.3 fL (35.1-46.3); Red Blood Cell Count 4.09 M/mm3 (3.80-5.20); White Blood Cell Count 12.99 K/mm3 (4.00-11.30)
[2023-03-02 04:38] LABS: Albumin, Blood 2.4 g/dL (3.4-5.0); Anion Gap 6 mmol/L (6-16); Blood Urea Nitrogen 9 mg/dL (8-24); Bun/Creatinine Ratio 14.9 (12.0-20.0); CO2, Blood 26 mmol/L (21-32); Calcium, Blood 8.6 mg/dL (8.5-10.1); Chloride, Blood 108 mmol/L (98-108); Glomerular Filtration Rate 90 (60-); Glucose, Blood 234 mg/dL (70-99); Sodium, Blood 140 mmol/L (136-145)
--- NOTE | 2023-03-02 06:14 | NUR ---
SHIFT SUMMARY PT REMAINS A&O X4; SPO2 >92% ON 2LNC; MAP >65; RATE IN 70'S. PT CONTINUES TO DENY CP, INCREASED SOB, OR NAUSEA. DYSPNEIC W/ EXERTION. PT HAS FREQUENT COUGH W/ YELLOW SPUTUM. NO ACUTE EVENTS OVERNIGHT. LR INFUSING PER EMAR.
--- NOTE | 2023-03-02 10:46 | NUR ---
CARE OF PT ASSUMED AT 0700. PT AWAKE AND ALERT, OX3, SITTING UP IN BED. PT REMAINS HYPOTENSIVE WITH MAPS BETWEEN 50-70. PT ASYMPTOMATIC WITH LOWER BLOOD PRESSURES. DR CAMPBELL AT BEDSIDE THIS AM, FULL UPDATE GIVEN. MIDODRINE INCREASED. SATS >90% ON 2L VIA N/C. LUNGS ARE COARSE T/O WITH SCATTERED WHEEZES BUT IMPROVED FROM YESTERDAY. NS INFUSING AT 75CC/HR.
--- NOTE | 2023-03-02 13:40 | NUR ---
BP SLOWLY TRENDING UP. BP'S LABILE OVERALL. MAUNAL TAKEN; UNABLE TO HEAR BP WITH STETHOSCOPE; USED DOPPLER. MANUAL BP CORRELATES WITH NBP. PT CONTINUES TO DENY SYMPTOMS. PT OOB FREQUENTLY TO VOID W/O C/O DIZZINESS. PT DOES HAVE SOME TACHYPNEA/DYSPNEA WITH EXERTION, SATS REMAIN >90%.
--- NOTE | 2023-03-02 15:09 | NUR ---
DR CAMPBELL CALLED REGARDING LABILE BP'S AND HYPOTENSION. MAP GOAL TO BE [address] CAMPBELL. PICC DISCUSSED WITH DR CAMPBELL, WILL HOLD FOR NOW D/T BACTEREMIA. WILL PLACE POWERGLIDE TO LARGER VEIN IN CASE LOW DOSE LEVOPHED IS NEEDED. ECHO ORDERED.
--- NOTE | 2023-03-02 15:45 | NUR ---
18G/10CM POWERGLIDE PLACED TO DARWIN W/O DIFFICULTY. LINE DRAWS BLOOD AND FLUSHES W/O DIFFICULTY.
--- NOTE | 2023-03-02 17:27 | NUR ---
ECHO COMPLETE. DR CAMPBELL UPDATED. PT REMAINS HYPOTENSIVE W MAPS >65. PT SITTING UP IN BED EATING DINNER AND WATCHING TV W/O COMPLAINTS
--- NOTE | 2023-03-02 20:01 | NUR ---
ASSUMED CARE PT IS A&O X4; SPO2 >92% ON 2L MAP >60. PT DENIES CP, INCREASED SOB, OR NAUSEA AT THIS TIME. GRANDSON AT BEDSIDE AT START OF SHIFT. PT AMBULATED TO TOILET; DESATURATES TO 88~, BUT QUICKLY RECOVERS.
[2023-03-03] VITALS (19 sets, daily range): BP systolic 78–125; BP diastolic 43–92
[2023-03-03 04:15] LABS: BASOPHILS ABSOLUTE AUTO 0.03 K/mm3 (0.00-0.23); BASOPHILS PERCENT AUTO 0 % (0-2); EOSINOPHILS PERCENT AUTO 0 % (0-6); Hematocrit 32.7 % (33.0-51.0); Hemoglobin 10.5 g/dL (11.5-16.0); IMMATURE GRAN ABSOLUTE AUTO 0.42 K/mm3 (0.00-0.10); IMMATURE GRAN PERCENT AUTO 3 % (0-1); LYMPHOCYTES PERCENT AUTO 8 % (21-46); MONOCYTES ABSOLUTE AUTO 0.54 K/mm3 (0.16-1.47); MONOCYTES PERCENT AUTO 4 % (4-13); Mean Corpuscular HGB 27.9 pg (26.0-34.0); Mean Corpuscular HGB Conc 32.1 g/dL (31.5-36.5); Mean Corpuscular Volume 87 fL (80-100); Mean Platelet Volume 10.4 fL (9.1-12.4); NEUTROPHILS ABSOLUTE AUTO 12.54 K/mm3 (1.96-9.15); NEUTROPHILS PERCENT AUTO 86 % (41-73); Platelet Count 308 K/mm3 (150-400); RDW Coefficient Variation 16.3 % (11.7-14.2); RDW Standard Deviation 52.7 fL (35.1-46.3); Red Blood Cell Count 3.76 M/mm3 (3.80-5.20); White Blood Cell Count 14.63 K/mm3 (4.00-11.30)
[2023-03-03 04:56] LABS: Albumin, Blood 2.4 g/dL (3.4-5.0); Anion Gap 5 mmol/L (6-16); Blood Urea Nitrogen 13 mg/dL (8-24); Bun/Creatinine Ratio 17.9 (12.0-20.0); CO2, Blood 30 mmol/L (21-32); Chloride, Blood 106 mmol/L (98-108); Creatinine, Blood 0.73 mg/dL (0.40-1.00); Glomerular Filtration Rate 83 (60-); Glucose, Blood 241 mg/dL (70-99); Phosphorus, Blood 2.9 mg/dL (2.5-4.9); Potassium, Blood 3.3 mmol/L (3.5-5.5); Sodium, Blood 141 mmol/L (136-145)
[2023-03-03 05:08] LABS: Vancomycin, Trough 17.4 ug/mL (5.0-10.0)
--- NOTE | 2023-03-03 05:41 | NUR ---
SHIFT SUMMARY PT A&O X4; RESTLESS T/O NIGHT D/T PAIN IN SHOULDER AND RIGHT HIP. RIGHT SHOULDER PAIN MANAGED WELL W/ NORCO PER EMAR; TUCKING PILLOW MANAGES HIP PAIN. PT HAD URINE FREQUENCY TONIGHT W/ SEVERAL TRIPS TO RESTROOM, TOLERATED WALKING WELL W/ MILD DYSPNEA. NO ACUTE EVENTS OVERNIGHT. VSS.
--- NOTE | 2023-03-03 15:14 | NUR ---
DANNI HAS BEEN DOING WELL SINCE THE BEGINNING OF MY SHIFT. SHE WAS SPEAKING WITH AT 0700 THIS AM AT BEDSIDE, SHE HAD QUESTIONS ANSWERED AND CONCERNS ADDRESSED. HE MADE HER MED STATUS WITH VS Q4 + BIOX CHECKS AND PRN. SHE HAS BEEN GETTING UP TO THE BATHROOM INDEPENDENTLY, SHE HAS RECEIVED A COUPLE OF BREATHING TREATMENTS FOR INCREASED DYSPNEA AND WHEEZING POST BEING UP IN THE ROOM. SHE IS CURRENTLY OFF HER OXYGEN, SATS 93%. SHE WAS GIVEN A DOSE OF TYLENOL AND EXPRESSED HER PLEASURE WITH THE RESULTS. SHE WAS ABLE TO TAKE A NAP BRIEFLY.
--- NOTE | 2023-03-03 15:24 | NUR ---
LEFT ARM NOTE: PT'S LEFT ARM A/C HAD A PREVIOUS INFILTRATION SITE THAT HAS BEEN ASSESSED T/O THE DAY. THE SITE HAS SOME SLIGHT SWELLING AND REDNESS. PT'S LEFT UPPER ARM POWERGLIDE REMOVED, PT C/O IT BEING PAINFUL AND UNUSEFUL. RIGHT SIDE WORKING WELL. THE PG DC'D AND PRESSURE HELD TO THE LEFT ARM. COBAN PLACED. PT THEN TURNED ONTO THE LEFT SIDE AND NAPPED FOR A BRIEF PERIOD OF TIME. UPON WAKING SHE NOTED THAT THE SITE FROM THE PG WAS "OOZING". THE SITE WAS REDRESSED, THIS RN NOTED THAT THE ENTIRE AREA HAS UNDERLYING BRUISING AND BLOOD BUILD UP THAT WAS NOT THERE PRIOR TO REMOVAL OF THE PG. PT STATES THERE IS NO CHANGE IN TENDERNESS OR PAIN AND THAT SHE FEELS LIKE IT WAS BECAUSE OF THE POSITION OF HER ARM WHILE NAPPING. SITE CHECKED, NO OBVIOUS BLEEDING NOTED EXTERNALLY.
--- NOTE | 2023-03-03 17:46 | NUR ---
REPORT GIVEN TO KIANA JONES ON MEDICAL FLOOR. PT GIVEN HER DINNER TRAY AND ROOM IS PACKED UP WITH HER BELONGINGS. SHE IS FINISHING UP HER VANCOMYCIN PB AND HER DINNER. SHE WILL BE TRANSFERRED VIA WHEELCHAIR WHEN DINNER IS FINISHED.
--- NOTE | 2023-03-03 18:16 | NUR ---
1800 TRANSFERRED TO MEDICAL FLOOR VIA WHEELCHAIR WITH 3 BAGS OF PERSONAL BE- LONGINGS AND ONE BAG OF MEDICAL SUPPLIES. TRANSFERRED TO BED WITH MINIMAL HELP.
[2023-03-04] VITALS (11 sets, daily range): BP systolic 81–144; BP diastolic 57–121
[2023-03-04 04:49] LABS: BASOPHILS ABSOLUTE AUTO 0.02 K/mm3 (0.00-0.23); BASOPHILS PERCENT AUTO 0 % (0-2); EOSINOPHILS PERCENT AUTO 0 % (0-6); Hematocrit 36.9 % (33.0-51.0); Hemoglobin 11.9 g/dL (11.5-16.0); IMMATURE GRAN ABSOLUTE AUTO 0.44 K/mm3 (0.00-0.10); IMMATURE GRAN PERCENT AUTO 4 % (0-1); LYMPHOCYTES ABSOLUTE AUTO 1.01 K/mm3 (0.84-5.20); LYMPHOCYTES PERCENT AUTO 9 % (21-46); MONOCYTES ABSOLUTE AUTO 0.45 K/mm3 (0.16-1.47); MONOCYTES PERCENT AUTO 4 % (4-13); Mean Corpuscular HGB 27.8 pg (26.0-34.0); Mean Corpuscular HGB Conc 32.2 g/dL (31.5-36.5); Mean Corpuscular Volume 86 fL (80-100); Mean Platelet Volume 10.3 fL (9.1-12.4); NEUTROPHILS ABSOLUTE AUTO 9.08 K/mm3 (1.96-9.15); NEUTROPHILS PERCENT AUTO 83 % (41-73); Platelet Count 323 K/mm3 (150-400); RDW Coefficient Variation 16.4 % (11.7-14.2); RDW Standard Deviation 51.8 fL (35.1-46.3); Red Blood Cell Count 4.28 M/mm3 (3.80-5.20)
--- NOTE | 2023-03-04 04:52 | NUR ---
SHIFT SUMMARY PT AWAKE DURING SHIFT REPORT, TALKING ON PHONE WHEN ENTERING. PT TX'D FROM ICU EARLIER IN THE DAY. A&O, INDEPENDENT TO BTHRM NEEDED. PT ADMITTED FOR SEPSIS R/T PNM. PT ON RA, RECEIVING IV ABX. BP LOW; SEE CHART. RECEIVING MIDODRINE. BP RECHK'D BEFORE AND AFTER MEDICATION ADMIN. DR BARNES UPDATED ON RESULTS; NEW ORDERS RECEIVED. 5OOcc BOLUS GIVEN WITH GOOD RESULTS; SEE CHART. PT IRRITABLE AND UPSET THIS AM STATING THAT SHE DOESN'T KNOW WHAT IS GOING ON AND WHY SHE IS HERE. ATTEMPTED TO EDU PT ON PLAN OF CARE. PT SEEMS TO BE FORGETFUL AT TIMES. LUNGS T/O WITH INSP/EXP WHEEZES. SITTING UP IN BED WATCHING TV AT THIS TIME. DENIED FURTHER NEEDS. CALL LT IN REACH.
[2023-03-04 05:03] LABS: Albumin, Blood 2.6 g/dL (3.4-5.0); Anion Gap 5 mmol/L (6-16); Blood Urea Nitrogen 16 mg/dL (8-24); Bun/Creatinine Ratio 20.5 (12.0-20.0); CO2, Blood 30 mmol/L (21-32); Calcium, Blood 8.6 mg/dL (8.5-10.1); Chloride, Blood 104 mmol/L (98-108); Creatinine, Blood 0.78 mg/dL (0.40-1.00); Glomerular Filtration Rate 76 (60-); Glucose, Blood 218 mg/dL (70-99); Phosphorus, Blood 2.5 mg/dL (2.5-4.9); Potassium, Blood 3.6 mmol/L (3.5-5.5); Sodium, Blood 139 mmol/L (136-145)
--- NOTE | 2023-03-04 09:00 | NUR ---
PT PLEASANT TALKATIVE A/O X4, NO C/O PAIN. H/R REG, NO MURMUR NOTED. NO EDEMA NOTED. NO TELE. BP LOW 82/61 P-57 MAP >65. PT STATES NORMALLY LOW, THIS MORESO. DENIES SYMPTOMATIC. DISCUSSED WITH DR AT BEDSIDE. CONTINUE TO WATCH. LUNGS COARSE ON RT AND WHEEZY ON LEFT. SPEAKING 6 WORD SENTENCES, RESP EASY, UNLABORED. ON R/A. BT X4 LAST BM NOT SURE. VOIDS 1 ASST TO BATHROOM. BED IN LOW POSITION, CALL LITE IN REACH. CALLS APPROP-
[2023-03-04] MEDS ORDERED: ALEN70 PO (16:05)
--- NOTE | 2023-03-04 18:35 | NUR ---
PT PLEASNT TODAY. NO C/O PAIN. SBA TO BATHROOM. DID HAVE NEED FOR O2 TO BE PLACED AFTER ONE AMBULATION TO BATHROOM. DOWN TO 1L AT THIS TIME. BP WERE LOW THIS AM. IMPROVED T/O DAY. WAS NOTIFIED AND WE ARE WATCHING. NO OTHER CONCERNS NOTED. BED INLOW POSITION, CALL LITE IN REACH. CALLS APPROP
[2023-03-05] VITALS (7 sets, daily range): BP systolic 64–103; BP diastolic 51–84
--- NOTE | 2023-03-05 02:21 | NUR ---
A&OX3 STANDY BY ASSIST ADLIB, PT IS CHRONICALLY HYPOTENSIVE,FALLS PRECAUTIONS IN PLACE GAIT IS NORMAL STEADY/SLOW PT UP TO VOID, LUNGS ARE AUDIBLY WHEEZY T/O ON EXPIRATION FINE CRACKLES ON RIGHT, HR 90S, BOWEL SOUNDS ARE HYPOACTIVE PRESENT IN LOWER QUADS, PT C/O BLE ACHING DESCRIPTIVE OF NEUROPATHY X1 MONTH, NO EDEMA PRESENT, CONTINUES ON 1LNC R/T DESTAT WITH AMBULATION CURRENT POX 90 TO 94%, PT WAS ASSISTED WITH SHOWER PRIOR TO BED USES CALL CORLEY APPROPERIATELY BED LOWERED WILL CONTINUE TO MONITOR.
[2023-03-05 04:50] LABS: BASOPHILS ABSOLUTE AUTO 0.03 K/mm3 (0.00-0.23); BASOPHILS PERCENT AUTO 0 % (0-2); EOSINOPHILS PERCENT AUTO 0 % (0-6); Hemoglobin 12.6 g/dL (11.5-16.0); IMMATURE GRAN ABSOLUTE AUTO 0.32 K/mm3 (0.00-0.10); IMMATURE GRAN PERCENT AUTO 4 % (0-1); LYMPHOCYTES ABSOLUTE AUTO 1.16 K/mm3 (0.84-5.20); LYMPHOCYTES PERCENT AUTO 13 % (21-46); MONOCYTES ABSOLUTE AUTO 0.36 K/mm3 (0.16-1.47); MONOCYTES PERCENT AUTO 4 % (4-13); Mean Corpuscular HGB 27.9 pg (26.0-34.0); Mean Corpuscular HGB Conc 32.3 g/dL (31.5-36.5); Mean Corpuscular Volume 86 fL (80-100); Mean Platelet Volume 10.5 fL (9.1-12.4); NEUTROPHILS PERCENT AUTO 80 % (41-73); Platelet Count 331 K/mm3 (150-400); RDW Coefficient Variation 16.4 % (11.7-14.2); RDW Standard Deviation 51.7 fL (35.1-46.3); Red Blood Cell Count 4.52 M/mm3 (3.80-5.20); White Blood Cell Count 9.27 K/mm3 (4.00-11.30)
[2023-03-05 05:13] LABS: Albumin, Blood 2.7 g/dL (3.4-5.0); Anion Gap 6 mmol/L (6-16); Blood Urea Nitrogen 23 mg/dL (8-24); Bun/Creatinine Ratio 29.5 (12.0-20.0); CO2, Blood 31 mmol/L (21-32); Calcium, Blood 8.5 mg/dL (8.5-10.1); Chloride, Blood 101 mmol/L (98-108); Creatinine, Blood 0.78 mg/dL (0.40-1.00); Glomerular Filtration Rate 76 (60-); Glucose, Blood 215 mg/dL (70-99); Magnesium, Blood 1.8 mg/dL (1.6-2.4); Phosphorus, Blood 2.9 mg/dL (2.5-4.9); Potassium, Blood 3.5 mmol/L (3.5-5.5); Sodium, Blood 138 mmol/L (136-145)
[2023-03-05 05:17] LABS: Vancomycin, Trough 18.9 ug/mL (5.0-10.0)
--- NOTE | 2023-03-05 17:44 | NUR ---
BP 64/51. P 83, PT STATES ASYMPTOMATIC. IS BARELY SITTING UP IN BED. LAID FLAT FEET UP. MIDODRINE GIVEN, CALLD DR CAMPBELL. OKAYED 1L BOLUS OF 500 THEN 500 AT 100. 1 LITER TODAL OF L/R.
--- NOTE | 2023-03-05 18:05 | NUR ---
PT BP UP 71/57 500 BOLUS DONE. STARTING 100/HR
--- NOTE | 2023-03-05 18:09 | NUR ---
PT PLEASANT TODAY. NO C.O. PAIN TODAY. BP UP SOME THIS AM. LIGHT CRACKLES BASES. IMPROVED FROM YEST. CONTINUES ON 1L O2. THIS AFT SHE DROPPED IN BP, ALTHOUGH IS ASYMPTOMATIC, IS LYING FLAT. BOLUS PRESENTLY RUNNING. THEN TO BE SET FOR 500 CC AT 100/HR FOR 1 TOTAL BAG. MIDODRINE GIVEN. BP UP SOME TO 71/57. LYING FLAT AND FEET UP. DR CAMPBELL AWARE. NO OTHER CONCERNS NOTED. BED IN LOW POSITION, CALL LITE IN REACH CALLS APPROP
[2023-03-06 00:17] VITALS: BP 125/84
--- NOTE | 2023-03-06 03:20 | NUR ---
HAIR PREPARER SUMMARY BP LOW ON SHIFT COMMENCE (76/58). ASYMPTOMATIC. IV FLUIDS AND MEDEDRINE ADMINISTERED. BP TRENDED UP TO 125/84. UP TO BATHROOM PRN WITH NOTIFICATION OF STAFF IN CASE SHE FELT VERTIGO. NO REPORTED VERTIGO. HAS BEEN RESTING QUIETLY WITH FEW INTERRUPTIONS. CALL LIGHT IN REACH. RAILS UP X 2 FOR SAFETY. WILL CONTINUE TO MONITOR.
[2023-03-06 04:00] VITALS: BP 104/64
[2023-03-06 05:07] LABS: BASOPHILS ABSOLUTE AUTO 0.04 K/mm3 (0.00-0.23); BASOPHILS PERCENT AUTO 0 % (0-2); EOSINOPHILS PERCENT AUTO 0 % (0-6); Hematocrit 40.4 % (33.0-51.0); Hemoglobin 12.8 g/dL (11.5-16.0); IMMATURE GRAN ABSOLUTE AUTO 0.33 K/mm3 (0.00-0.10); IMMATURE GRAN PERCENT AUTO 3 % (0-1); LYMPHOCYTES ABSOLUTE AUTO 1.23 K/mm3 (0.84-5.20); LYMPHOCYTES PERCENT AUTO 11 % (21-46); MONOCYTES ABSOLUTE AUTO 0.42 K/mm3 (0.16-1.47); MONOCYTES PERCENT AUTO 4 % (4-13); Mean Corpuscular HGB Conc 31.7 g/dL (31.5-36.5); Mean Corpuscular Volume 88 fL (80-100); Mean Platelet Volume 10.4 fL (9.1-12.4); NEUTROPHILS PERCENT AUTO 83 % (41-73); Platelet Count 344 K/mm3 (150-400); RDW Coefficient Variation 16.6 % (11.7-14.2); RDW Standard Deviation 53.8 fL (35.1-46.3); Red Blood Cell Count 4.57 M/mm3 (3.80-5.20); White Blood Cell Count 11.62 K/mm3 (4.00-11.30)
[2023-03-06 05:42] LABS: Albumin, Blood 2.7 g/dL (3.4-5.0); Anion Gap 7 mmol/L (6-16); Blood Urea Nitrogen 26 mg/dL (8-24); Bun/Creatinine Ratio 33.5 (12.0-20.0); CO2, Blood 29 mmol/L (21-32); Calcium, Blood 8.6 mg/dL (8.5-10.1); Chloride, Blood 103 mmol/L (98-108); Creatinine, Blood 0.78 mg/dL (0.40-1.00); Glomerular Filtration Rate 76 (60-); Glucose, Blood 186 mg/dL (70-99); Magnesium, Blood 1.9 mg/dL (1.6-2.4); Phosphorus, Blood 3.5 mg/dL (2.5-4.9); Potassium, Blood 3.9 mmol/L (3.5-5.5); Sodium, Blood 139 mmol/L (136-145)
[2023-03-06 07:54] VITALS: BP 106/83
[2023-03-06 15:29] VITALS: BP 83/51
--- NOTE | 2023-03-06 19:28 | NUR ---
SHIFT SUMMARY; PATIENT HAD NO EPISODES OF VERTIGO NOTED DURING DAY SHIFT. SHE DID HAVE LOW B/P OF 89 SYSTOLIC AND WAS GIVEN MIDODRINE ONE HOUR EARLY TO ASSIST IN BRINGING HER B/P UP WITH GOOD RESULTS. SHE IS AO X 4 DURING DAY AND USES CALL LIGHT APPROPRIATELY. SHE WILL BE GOING TO SNF FOR ANTIBIOTIC THERAPY PER . CM WILL BE NOTIFIED AND CAN ASIST WITH THIS PLACEMENT.
[2023-03-06 20:09] VITALS: BP 108/88
--- NOTE | 2023-03-07 03:20 | NUR ---
WILDLIFE CONTROL AGENT SUMMARY VSS. BP REMAINS WNL THIS SHIFT. CONTINUES TO RECEIVE MIDODRINE TO KEEP IT ELEVATED. DENIES VERTIGO AND ABLE TO AMBULATE TO AND FROM THE BR WITHOUT NOTED DISTRESS. IV AND PO ANTIBIOTICS ADMINISTERED. AWAKE AT INTERVALS WATCHING TV. CALL LIGHT IN REACH. RAILS UP X 2 FOR SAFETY. WILL CONTINUE TO MONITOR.
[2023-03-07 04:09] VITALS: BP 120/77
[2023-03-07 04:32] LABS: BASOPHILS ABSOLUTE AUTO 0.04 K/mm3 (0.00-0.23); BASOPHILS PERCENT AUTO 0 % (0-2); EOSINOPHILS PERCENT AUTO 0 % (0-6); Hematocrit 39.7 % (33.0-51.0); Hemoglobin 12.8 g/dL (11.5-16.0); IMMATURE GRAN ABSOLUTE AUTO 0.44 K/mm3 (0.00-0.10); IMMATURE GRAN PERCENT AUTO 4 % (0-1); LYMPHOCYTES ABSOLUTE AUTO 0.94 K/mm3 (0.84-5.20); LYMPHOCYTES PERCENT AUTO 8 % (21-46); MONOCYTES ABSOLUTE AUTO 0.26 K/mm3 (0.16-1.47); MONOCYTES PERCENT AUTO 2 % (4-13); Mean Corpuscular HGB 27.9 pg (26.0-34.0); Mean Corpuscular HGB Conc 32.2 g/dL (31.5-36.5); Mean Corpuscular Volume 87 fL (80-100); Mean Platelet Volume 10.2 fL (9.1-12.4); NEUTROPHILS ABSOLUTE AUTO 10.88 K/mm3 (1.96-9.15); NEUTROPHILS PERCENT AUTO 87 % (41-73); Platelet Count 322 K/mm3 (150-400); RDW Coefficient Variation 16.6 % (11.7-14.2); RDW Standard Deviation 52.2 fL (35.1-46.3); Red Blood Cell Count 4.59 M/mm3 (3.80-5.20); White Blood Cell Count 12.56 K/mm3 (4.00-11.30)
[2023-03-07 04:55] LABS: Albumin, Blood 2.7 g/dL (3.4-5.0); Anion Gap 7 mmol/L (6-16); Blood Urea Nitrogen 27 mg/dL (8-24); Bun/Creatinine Ratio 30.9 (12.0-20.0); CO2, Blood 29 mmol/L (21-32); Calcium, Blood 8.6 mg/dL (8.5-10.1); Chloride, Blood 103 mmol/L (98-108); Creatinine, Blood 0.88 mg/dL (0.40-1.00); Glomerular Filtration Rate 66 (60-); Glucose, Blood 219 mg/dL (70-99); Phosphorus, Blood 3.6 mg/dL (2.5-4.9); Sodium, Blood 139 mmol/L (136-145); Vancomycin, Trough 13.6 ug/mL (5.0-10.0)
[2023-03-07 08:01] VITALS: BP 105/75
[2023-03-07 16:11] VITALS: BP 79/63
--- NOTE | 2023-03-07 18:55 | NUR ---
PT HAD A BP THIS AFTERNOON OF 79/63. ASYMPTOMATIC OF LOW BP. HEART RATE 86. MD NOTIFIED BEING TO EARLY FOR MIDODRINE. MD ENCOURAGED PT TO DRINK WATER OR GATORADE AND MONITER ANY SYMPTOMOLOGY.
--- NOTE | 2023-03-07 19:33 | NUR ---
SHIFT SUMMARY; NO ACUTE CHANGES IN CONDITION NOTED IN PATIENTS CONDITION. ONE AREA OF CONCERN WAS HER SOFT B/P THAT AT LOWEST WAS 79/51 THIS EVENING PRIOR TO SHIFT CHANGE. NOTIFIED AND PATIENT WAS PROVIDED WITH GATORADE LARGE BOTTLE AND ASKED TO DRINK IT TO BRING HER PRESSURE UP. THIS RN ALSO ADMIN 10MG MIDRONE ORDERED. PATIENT IS NOT SYMPTOMATIC. BAKER DOUGHNUT COMES TO ROOM TO SPEAK TO COLEEN ABOUT SNF PLACEMENT FOR ANTIBIOTIC THERAPY. [facility] AND [facility] ARE BOTH FULL SO WILL BE CHECKING OUT OF AREA. PATIENT IS AGREABLE TO PLAN.
[2023-03-07 20:30] VITALS: BP 87/65
[2023-03-08 04:24] LABS: BASOPHILS ABSOLUTE AUTO 0.03 K/mm3 (0.00-0.23); BASOPHILS PERCENT AUTO 0 % (0-2); EOSINOPHILS PERCENT AUTO 0 % (0-6); Hematocrit 39.2 % (33.0-51.0); Hemoglobin 12.8 g/dL (11.5-16.0); IMMATURE GRAN PERCENT AUTO 3 % (0-1); LYMPHOCYTES ABSOLUTE AUTO 0.85 K/mm3 (0.84-5.20); LYMPHOCYTES PERCENT AUTO 7 % (21-46); MONOCYTES ABSOLUTE AUTO 0.28 K/mm3 (0.16-1.47); MONOCYTES PERCENT AUTO 2 % (4-13); Mean Corpuscular HGB 28.3 pg (26.0-34.0); Mean Corpuscular HGB Conc 32.7 g/dL (31.5-36.5); Mean Corpuscular Volume 87 fL (80-100); Mean Platelet Volume 10.7 fL (9.1-12.4); NEUTROPHILS ABSOLUTE AUTO 10.73 K/mm3 (1.96-9.15); NEUTROPHILS PERCENT AUTO 88 % (41-73); Platelet Count 335 K/mm3 (150-400); RDW Coefficient Variation 16.8 % (11.7-14.2); RDW Standard Deviation 52.3 fL (35.1-46.3); Red Blood Cell Count 4.53 M/mm3 (3.80-5.20); White Blood Cell Count 12.19 K/mm3 (4.00-11.30)
--- NOTE | 2023-03-08 04:36 | NUR ---
SHIFT SUMMARY PT SALINE LOCKED AND ABLE TO MOVE ABOUT ROOM INDEPENDANTLY. VERIFIED UNDERSTANDING OF USE OF CALL LIGHT WHEN NEEDED. MEDICATED PER EMAR. PT SLEPT THROUGHOUT SHIFT. PLEASANT AND COOPERATIVE WITH CARE PROVIDED.
[2023-03-08 04:43] LABS: Vancomycin, Trough 18.1 ug/mL (5.0-10.0)
[2023-03-08 05:13] VITALS: BP 98/78
[2023-03-08 08:09] VITALS: BP 128/86
[2023-03-08 15:51] VITALS: BP 88/64
[2023-03-08 17:12] LABS: Bun/Creatinine Ratio 33.3 (12.0-20.0); Calcium, Blood 8.2 mg/dL (8.5-10.1); Creatinine, Blood 0.87 mg/dL (0.40-1.00); Potassium, Blood 3.9 mmol/L (3.5-5.5)
[2023-03-08 19:40] VITALS: BP 81/53
[2023-03-09 04:56] LABS: BASOPHILS ABSOLUTE AUTO 0.05 K/mm3 (0.00-0.23); BASOPHILS PERCENT AUTO 0 % (0-2); EOSINOPHILS ABSOLUTE AUTO 0.02 K/mm3 (0.00-0.68); EOSINOPHILS PERCENT AUTO 0 % (0-6); Hematocrit 39.3 % (33.0-51.0); Hemoglobin 12.6 g/dL (11.5-16.0); IMMATURE GRAN ABSOLUTE AUTO 0.56 K/mm3 (0.00-0.10); IMMATURE GRAN PERCENT AUTO 4 % (0-1); LYMPHOCYTES ABSOLUTE AUTO 2.98 K/mm3 (0.84-5.20); LYMPHOCYTES PERCENT AUTO 20 % (21-46); MONOCYTES ABSOLUTE AUTO 1.25 K/mm3 (0.16-1.47); MONOCYTES PERCENT AUTO 8 % (4-13); Mean Corpuscular HGB 27.9 pg (26.0-34.0); Mean Corpuscular HGB Conc 32.1 g/dL (31.5-36.5); Mean Corpuscular Volume 87 fL (80-100); Mean Platelet Volume 10.8 fL (9.1-12.4); NEUTROPHILS ABSOLUTE AUTO 10.35 K/mm3 (1.96-9.15); NEUTROPHILS PERCENT AUTO 68 % (41-73); Platelet Count 308 K/mm3 (150-400); RDW Standard Deviation 53.5 fL (35.1-46.3); Red Blood Cell Count 4.52 M/mm3 (3.80-5.20); White Blood Cell Count 15.21 K/mm3 (4.00-11.30)
[2023-03-09 05:30] VITALS: BP 86/69
[2023-03-09 05:35] LABS: Albumin, Blood 2.6 g/dL (3.4-5.0); Albumin/Globulin Ratio 0.8 (0.8-1.8); Bilirubin, Total 0.4 mg/dL (0.1-1.0); Bun/Creatinine Ratio 35.3 (12.0-20.0); Calcium, Blood 8.3 mg/dL (8.5-10.1); Creatinine, Blood 0.94 mg/dL (0.40-1.00); Globulin, Blood 3.1 g/dL (2.2-4.0); Potassium, Blood 3.6 mmol/L (3.5-5.5); Total Protein, Blood 5.7 g/dL (6.4-8.2)
[2023-03-09 07:16] VITALS: BP 108/76
--- NOTE | 2023-03-09 08:51 | NUR ---
Pt sitting up in bed watching tv, a/ox4, pleasant and coopertive with care, follows commands well, denies pain, states she feels about the same, lungs have faint exp wheeze t/o, resp even and unlabored, no cough noted at this time, currently on 1 liter 02 via n/c, hrr, no edema noted, ppp +1, cap refill <3 sec, vs stable, afebrile, iv site is power glide to lucía site is clear and flushes well, reports it was burning this am, btx4, abd flat soft nontender, reports loose stools while in icu, none since, and states she just wants colace and nothing more, her bowels will do their own thing, voids without diff, skin c/w/d, sam diaz, call light in reach.
[2023-03-09 12:28] LABS: Influenza A, PCR NEGATIVE (NEGATIVE); Influenza B, PCR NEGATIVE (NEGATIVE); Resp Syncytial Virus, PCR NEGATIVE (NEGATIVE); SARS-Cov-2 (COVID-19) PCR, MMC NEGATIVE (NEGATIVE)
[2023-03-09 15:46] VITALS: BP 77/55
[2023-03-09 15:53] VITALS: BP 77/51
--- NOTE | 2023-03-09 18:05 | NUR ---
pt resting in bed awake watching tv, b/p has been in the high 70's, map >60, not at all symptomatic, gave her third dose of midadrine, did leave a msg with Dr. Vela, no further changes this shift. call light in reach.
[2023-03-09 18:19] VITALS: BP 72/58
[2023-03-09 19:32] VITALS: BP 82/55
[2023-03-10 03:34] VITALS: BP 104/74
--- NOTE | 2023-03-10 06:17 | NUR ---
PATIENT IS ALERT AND ORIENTED, WITH O2 AT 1 LPM/NASAL CANNULA. TAKES HER PILLS WHOLE 1 AT A TIME WITH WATER. ON SBA. WITH IV LINE ON RIGHT UE PATENT AND INTACT. AWAITING SNF PLACEMENT. NEEDS ATTENDED. WILL CONTINUE TO MONITOR
[2023-03-10 06:26] LABS: BASOPHILS ABSOLUTE AUTO 0.05 K/mm3 (0.00-0.23); BASOPHILS PERCENT AUTO 0 % (0-2); EOSINOPHILS ABSOLUTE AUTO 0.03 K/mm3 (0.00-0.68); EOSINOPHILS PERCENT AUTO 0 % (0-6); Hematocrit 41.7 % (33.0-51.0); Hemoglobin 13.2 g/dL (11.5-16.0); IMMATURE GRAN ABSOLUTE AUTO 0.57 K/mm3 (0.00-0.10); IMMATURE GRAN PERCENT AUTO 4 % (0-1); LYMPHOCYTES ABSOLUTE AUTO 2.72 K/mm3 (0.84-5.20); LYMPHOCYTES PERCENT AUTO 19 % (21-46); MONOCYTES ABSOLUTE AUTO 1.16 K/mm3 (0.16-1.47); MONOCYTES PERCENT AUTO 8 % (4-13); Mean Corpuscular HGB Conc 31.7 g/dL (31.5-36.5); Mean Corpuscular Volume 88 fL (80-100); Mean Platelet Volume 10.9 fL (9.1-12.4); NEUTROPHILS PERCENT AUTO 68 % (41-73); Platelet Count 280 K/mm3 (150-400); RDW Coefficient Variation 17.2 % (11.7-14.2); RDW Standard Deviation 54.8 fL (35.1-46.3); Red Blood Cell Count 4.72 M/mm3 (3.80-5.20); White Blood Cell Count 14.03 K/mm3 (4.00-11.30)
[2023-03-10 06:49] LABS: Vancomycin, Trough 19.7 ug/mL (5.0-10.0)
[2023-03-10 06:53] LABS: Calcium, Blood 8.4 mg/dL (8.5-10.1); Creatinine, Blood 0.91 mg/dL (0.40-1.00); Potassium, Blood 3.7 mmol/L (3.5-5.5)
[2023-03-10 07:24] VITALS: BP 101/72
[2023-03-10] MEDS ORDERED: MIDO5 PO (12:55)
[2023-03-10] MEDS ORDERED: LACT PO (12:56)
[2023-03-10] MEDS ORDERED: Prednisone10 MG PO (12:56)
[2023-03-10] MEDS ORDERED: Vancomycin1 GM/2501 IV (12:58)
--- NOTE | 2023-03-10 19:51 | NUR ---
SHIFT SUMMARY AND DISCHARGE PATIENT DISCHARGED TO [facility] FOR CONTINUED ANTIBIOTIC THERAPY. PATIENT ALERT AND INDEPENDENT IN THE ROOM. PATIENT DISCHARGED WITH POWERGLIDE IN PLACE. PATIENT ASKING MULTIPLE QUESTIONS AND CONCERNS ABOUT PROCESS. PATIENT REASSURED. PATIENT TRANSPORTED TO [facility] VIA WHEELCHAIR. BELONGINGS SENT WITH PATIENT.
== END 2023-03-10 15:38 | DRG 871 ==
LOC: ER 16:01 → MEDS 03-01 02:51 → ICUE 03-01 03:13 → MEDS 03-03 18:10 → ENPENDDIS 03-10 11:15 → MEDS 03-10 15:38
PROVIDERS: Emergency Medicine; Family Medicine; Internal Medicine; Physician Assistant; Student in an Organized Health Care Education/Training Program; ADMIT Internal Medicine
PROC: 3E03329 Introduction of Other Anti-infective into Peripheral Vein, Percutaneous Approach (ICD-10-PCS; principal; 2023-03-01)
PROC: 3E033XZ Introduction of Vasopressor into Peripheral Vein, Percutaneous Approach (ICD-10-PCS; 2023-03-01)
DX: A41.01 Sepsis due to Methicillin susceptible Staphylococcus aureus (principal); J15.211 Pneumonia due to Methicillin susceptible Staphylococcus aureus; R65.21 Severe sepsis with septic shock; J96.01 Acute respiratory failure with hypoxia; J44.0 Chronic obstructive pulmonary disease with (acute) lower respiratory infection; J44.1 Chronic obstructive pulmonary disease with (acute) exacerbation; E87.1 Hypo-osmolality and hyponatremia; Z16.24 Resistance to multiple antibiotics; Q60.2 Renal agenesis, unspecified; E03.9 Hypothyroidism, unspecified; E78.5 Hyperlipidemia, unspecified; M81.0 Age-related osteoporosis without current pathological fracture; I10 Essential (primary) hypertension; Z79.890 Hormone replacement therapy; Z79.52 Long term (current) use of systemic steroids; Z79.51 Long term (current) use of inhaled steroids; Z79.83 Long term (current) use of bisphosphonates; Z88.2 Allergy status to sulfonamides; Z91.040 Latex allergy status; Z88.0 Allergy status to penicillin; Z11.52 Encounter for screening for COVID-19
CPT/HCPCS: 0241U; 36415; 71046; 80048; 80053; 80069; 80202; 83605; 83735; 83880; 84145; 84484; 85025; 87040; 87077; 87147; 87186; 93005; 93010; 93306; 94640; 94664; 94760; 94762; 96361; 96365; 96366; 96367; 96375; 99285-25; A9270; C1751; J0696; J1650; J1956; J2930; J3370; J3480; J7030; J7050; J7060; J7120; J7512

== ENCOUNTER → 2023-08-05 | Outpatient (CLI) | payer OTHER ==
[~2023-08-05] MED LIST changes: +ALEN70 PO; +DOC250 PO; +LACT PO; +MIDO5 PO; +Vancomycin1 GM/2501 IV
== END | disposition home or self-care (01) ==
LOC: LAB SHORT 16:11 → LAB 16:11
DX: E03.4 Atrophy of thyroid (acquired) (principal)
CPT/HCPCS: 36415; 84443

== ENCOUNTER → 2024-03-17 | Outpatient (CLI) | payer OTHER ==
[2024-03-17 16:42] LABS: Creatinine, Urine Random 73.3 mg/dL (27.00-270.00); Microalb/Creat Ratio UR, Rand 43.929 mg/g (0.000-30.000); Microalbumin, Random Urine 32.2 mg/L (0.000-20.000)
== END | disposition home or self-care (01) ==
LOC: LAB 11:20 → LAB SHORT 11:20
PROVIDERS: Physician Assistant
DX: E11.9 Type 2 diabetes mellitus without complications (principal); E03.4 Atrophy of thyroid (acquired); D50.9 Iron deficiency anemia, unspecified; E11.22 Type 2 diabetes mellitus with diabetic chronic kidney disease; N18.31 Chronic kidney disease, stage 3a; E11.65 Type 2 diabetes mellitus with hyperglycemia
CPT/HCPCS: 36415; 80053; 82043; 82570; 82728; 83036; 83540; 83550; 84100; 84443; 85025

== ENCOUNTER 2024-04-20 17:39 | Emergency (ER) | payer OTHER ==
[~2024-04-20] VITALS: Ht 157.5 cm; Wt 70.3 kg
[2024-04-20 18:12] LABS: BASOPHILS ABSOLUTE AUTO 0.05 K/mm3 (0.00-0.23); BASOPHILS PERCENT AUTO 0 % (0-2); EOSINOPHILS ABSOLUTE AUTO 0.29 K/mm3 (0.00-0.68); EOSINOPHILS PERCENT AUTO 2 % (0-6); Hematocrit 43.4 % (33.0-51.0); Hemoglobin 14.2 g/dL (11.5-16.0); IMMATURE GRAN ABSOLUTE AUTO 0.09 K/mm3 (0.00-0.10); IMMATURE GRAN PERCENT AUTO 1 % (0-1); LYMPHOCYTES PERCENT AUTO 24 % (21-46); MONOCYTES ABSOLUTE AUTO 0.85 K/mm3 (0.16-1.47); MONOCYTES PERCENT AUTO 7 % (4-13); Mean Corpuscular HGB 28.7 pg (26.0-34.0); Mean Corpuscular HGB Conc 32.7 g/dL (31.5-36.5); Mean Corpuscular Volume 88 fL (80-100); Mean Platelet Volume 11.2 fL (9.1-12.4); NEUTROPHILS ABSOLUTE AUTO 8.44 K/mm3 (1.96-9.15); NEUTROPHILS PERCENT AUTO 66 % (41-73); Platelet Count 204 K/mm3 (150-400); RDW Coefficient Variation 16.2 % (11.7-14.2); RDW Standard Deviation 52.3 fL (35.1-46.3); Red Blood Cell Count 4.94 M/mm3 (3.80-5.20); White Blood Cell Count 12.72 K/mm3 (4.00-11.30)
[2024-04-20 18:25] LABS: Albumin, Blood 2.9 g/dL (3.4-5.0); Albumin/Globulin Ratio 0.7 (0.8-1.8); Bilirubin, Total 0.9 mg/dL (0.1-1.0); Bun/Creatinine Ratio 23.6 (12.0-20.0); Calcium, Blood 8.5 mg/dL (8.5-10.1); Creatinine, Blood 0.72 mg/dL (0.40-1.00); Globulin, Blood 4.1 g/dL (2.2-4.0); Potassium, Blood 4.9 mmol/L (3.5-5.5)
[2024-04-20 19:13] LABS: Influenza A, PCR NEGATIVE (NEGATIVE); Influenza B, PCR NEGATIVE (NEGATIVE); Resp Syncytial Virus, PCR NEGATIVE (NEGATIVE); SARS-Cov-2 (COVID-19) PCR, MMC NEGATIVE (NEGATIVE)
[2024-04-20 20:19] VITALS: BP 80/55
== END 2024-04-20 20:40 | disposition home or self-care (01) ==
LOC: ER 17:39
PROVIDERS: Student in an Organized Health Care Education/Training Program
DX: K44.9 Diaphragmatic hernia without obstruction or gangrene (principal); J44.9 Chronic obstructive pulmonary disease, unspecified; Z87.891 Personal history of nicotine dependence; Z88.0 Allergy status to penicillin; Z88.2 Allergy status to sulfonamides; Z79.83 Long term (current) use of bisphosphonates; Z79.890 Hormone replacement therapy; Z79.52 Long term (current) use of systemic steroids; Z79.51 Long term (current) use of inhaled steroids; Z79.899 Other long term (current) drug therapy
CPT/HCPCS: 0241U; 71046; 80053; 83690; 84484; 85025; 93005; 93010; 99285-25